=== PATIENT | male | born 1980 | race Caucasian/White ===

== ENCOUNTER 2021-04-10 13:29 | Emergency (ER) | payer OTHER ==
[~2021-04-10] VITALS: Ht 172.7 cm; Wt 108.9 kg
[2021-04-10 13:30] VITALS: BP_SYST 135
[2021-04-10] MEDS ORDERED: ALBU8.5H8 INH (15:31)
[2021-04-10] MEDS ORDERED: PRED20TA PO (15:31)
[2021-04-10] MEDS ORDERED: ZIT250 PO (15:31)
== END 2021-04-10 15:41 | disposition home or self-care (01) ==
LOC: SED 13:29
DX: U07.1 COVID-19 (principal)
CPT/HCPCS: 36415; 71045; 99284

== ENCOUNTER 2021-04-14 05:26 | Inpatient (IN) | payer OTHER, SELFPAY ==
[2021-04-14] VITALS (13 sets, daily range): BP systolic 130–190
[~2021-04-14] VITALS: Ht 172.7 cm; Wt 108.0 kg
[~2021-04-14 05:26] MED LIST: ALBU8.5H8 INH; PRED20TA PO; ZIT250 PO
--- NOTE | 2021-04-14 05:50 | NUR ---
Placed in room 8 . Placed on library monitor, blood pressure machine and pulse oximeter. To gown for exam. Side rails up. Report given to Angeline OLIVAS.
--- NOTE | 2021-04-14 05:54 | NUR ---
Oxygen sat 61 % RA- on canula 6 L/min - Oxygen sat 70 %- change to Mask 15 L/min- Oxygen 82-87 %
--- NOTE | 2021-04-14 06:00 | NUR ---
Patient BIB by family from home. C/o SOB x today. Patient reported, had fever and COVID-19 result positive on 04/10/21, started shortness of breath ~ 1900 PM last night. Hx HTN
--- NOTE | 2021-04-14 06:04 | NUR ---
COVID-19 (PCR and Rapid) swabs collected and sent to lab.
--- NOTE | 2021-04-14 06:05 | NUR ---
# 20 gauge angiocath placed to RAC. Use of asceptic technique. Opsite placed over site. Blood return noted. Blood for lab drawn from site. Flushed with 10 cc of normal saline. No evidence of infiltration noted. Patient tolerated well.
--- NOTE | 2021-04-14 06:10 | NUR ---
RT at bedside for ABG.
[2021-04-14] MEDS ORDERED: DEXAMETHASONE SOD PHOSPHATE 10 MG/ML VIAL IVP ONE ×2 (06:15→09:30)
--- NOTE | 2021-04-14 06:15 | NUR ---
CXR at bedside.
[2021-04-14 06:40] LABS: BASOPHILS % (AUTO) 0.1 % (0.0-2.0); HEMATOCRIT 42.3 % (36-54); HEMOGLOBIN 14.9 g/dL (14.0-18.0); LYMPHOCYTES # (AUTO) 0.8 K/uL (1.0-5.5); LYMPHOCYTES % (AUTO) 6.7 % (20.5-51.5); MEAN CORPUSCULAR HEMOGLOBIN 31 pg (27-31); MEAN CORPUSCULAR HGB CONC 35 % (32-36); MEAN CORPUSCULAR VOLUME 86 fL (79.0-98.0); MONOCYTES # (AUTO) 0.3 K/uL (0.0-1.0); MONOCYTES % (AUTO) 2.6 % (1.7-9.3); NEUTROPHILS # (AUTO) 10.2 K/uL (1.8-7.7); NEUTROPHILS % (AUTO) 90.6 % (40.0-70.0); PLATELET COUNT (AUTO) 179 K/uL (130-430); RED BLOOD CELL COUNT(AUTO) 4.91 MIL/uL (4.2-6.2); RED CELL DISTRIBUTION WIDTH 12.8 % (9.0-15.0); WHITE BLOOD COUNT (AUTO) 11.2 K/uL (4.8-10.8)
[2021-04-14 06:51] LABS: CALCIUM 7.9 mg/dL (8.4-11.0); CREATININE 0.85 mg/dL (0.55-1.30); POTASSIUM 3.5 mmol/L (3.5-5.1)
[2021-04-14 06:57] LABS: INR 0.9 (0.80-1.20); PROTHROMBIN TIME 9.9 SECS (9.5-12.5)
--- NOTE | 2021-04-14 06:57 | NUR ---
Medication reconciliation completed with information provided by patient. Any prior medication reconciliation on file was reviewed and corrected.
[2021-04-14 07:09] LABS: ALBUMIN 2.7 g/dL (3.4-4.8); TOTAL BILIRUBIN 0.7 mg/dL (0.0-1.0)
--- NOTE | 2021-04-14 07:14 | NUR ---
Report given to DEISY Smith and endorse care of patient.
[2021-04-14] MEDS ORDERED: cefTRIAXone 1 GM IVPB PREMIX 50 ML IV ONE (07:15)
--- NOTE | 2021-04-14 08:40 | NUR ---
Admit orders rec'd
[2021-04-14 08:41] LABS: CKMB RELATIVE INDEX 0.2 (0.0-2.9)
--- NOTE | 2021-04-14 09:15 | NUR ---
med rec and pt. belonging form complete
[2021-04-14] MEDS ORDERED: ALBUTEROL SULFATE 0.083% 2.5 MG/3 ML VIAL.NEB INH PRN (09:30)
[2021-04-14] MEDS ORDERED: IPRATROPIUM BROM 0.5 MG/2.5 ML VIAL.NEB (ATROVENT) INH PRN (09:30)
[2021-04-14] MEDS ORDERED: ENOXAPARIN SODIUM 40 MG/0.4 ML SYRINGE SUBCUT ONE (09:30)
--- NOTE | 2021-04-14 10:03 | NUR ---
[facility] [phone]
[2021-04-14] MEDS: IPRATROPIUM BROM 0.5 MG/2.5 ML VIAL.NEB (ATROVENT) INH SCH ×2 (11:00→15:00)
[2021-04-14] MEDS: ALBUTEROL SULFATE 0.083% 2.5 MG/3 ML VIAL.NEB INH SCH ×2 (11:00→15:00)
[2021-04-14 11:01] LABS: C-REACTIVE PROTEIN QUANT 16.4 mg/dL (0-0.5)
--- NOTE | 2021-04-14 12:00 | NUR ---
Second IV line started to left hand to infuse antibiotics
[2021-04-14] MEDS: AZITHROMYCIN 500 MG in NS 250 ML IV SCH (12:07)
[2021-04-14] MEDS ORDERED: ENOXAPARIN SODIUM 40 MG/0.4 ML SYRINGE ONE (12:10)
--- NOTE | 2021-04-14 13:30 | NUR ---
Patient will be admitted to care of Admitted to ICU unit. Will go to room 127B. Belongings list completed. Complete and up to date summary report printed. SBAR report to be given at bedside with opportunity for questions.
--- NOTE | 2021-04-14 13:35 | NUR ---
Admission to ICU Received report from pt. Pt AAOx4, SOB but able to verbalize needs with short sentences. Received with NRB mask then switched to high flow O2 40L FiO2 100%. IV sites intact, patent with zithromax infusing. Situated pt to room and call light. Provided with urinal. Educated pt on proning, breathing exercises, refraining from talking, and encouraged to text family members rather than call. Pt states understanding. No other complaints at this time.
--- NOTE | 2021-04-14 13:37 | NUR ---
CONSULT ID CONSULTING MD: DR. ARMSTRONG (DR. PINTO MANAGER VAN) PERSON NOTIFIED: DR. BLAIR SALDANA IN NURSING STATION ORDERED BY: DR. HENDERSON
--- NOTE | 2021-04-14 13:43 | NUR ---
CONSULT PULMO. CONSULTING MD: DR. DSOUZA PERSON NOTIFIED: RAJEEV DIALED: [phone] ORDERED BY: Azam HENDERSON
[2021-04-14] MEDS ORDERED: CHOLECALCIFEROL (VITAMIN D3) 5,000 UNIT TABLET PO ONE (14:00)
[2021-04-14] MEDS ORDERED: ASCORBIC ACID 500 MG TABLET PO ONE (14:00)
--- NOTE | 2021-04-14 14:30 | NUR ---
Family updates/Pt updates Pt's sister Yumiko given updates on pt's condition. Informed Yumiko and pt's family members to send text messages to help pt focus on breathing, Yumiko states understanding. Pt also noted proning on monitor, saturating 90-95%.
--- NOTE | 2021-04-14 17:14 | NUR ---
CONSULT CARDIO. CONSULTING MD: DR. NOEL PERSON NOTIFIED: VINAY DIALED: [phone] ORDERED BY: Azam MALDONADO
[2021-04-14] MEDS ORDERED: LORazepam 2 MG/ML VIAL IVP ONE (17:15)
--- NOTE | 2021-04-14 19:00 | NUR ---
Pt's sister Yumiko and Carrie given updates regarding pt's status. Questions answered.
--- NOTE | 2021-04-14 19:19 | NUR ---
Closing Note: Sister of pt updated. Dr. James assessed pt. Pt given prn ativan, no relief of anxiety. SBAR report given to oncoming airframe and power plant mechanic nurse. All cares endorsed.
--- NOTE | 2021-04-14 19:30 | NUR ---
Initial Note Received laying in bed awake, alert & oriented. On high flow O2 40L FiO2 100%. O2 sat 88-91%. Instructed on breathing technique and proning. Able to prone self. Saline lock to right ac intact & patent. Fall precautions in place. Call light within reach. Will continue to monitor.
[2021-04-14] MEDS: ASCORBIC ACID 500 MG TABLET PO SCH (21:00)
--- NOTE | 2021-04-14 21:30 | NUR ---
Sister Yumiko called for update on patient status. Update given.
[2021-04-15] VITALS (21 sets, daily range): BP systolic 114–160
--- NOTE | 2021-04-15 00:30 | NUR ---
Took to radiology for CTA chest via wheelchair. Tolerated procedure well and brought back to bed.
[2021-04-15] MEDS ORDERED: IOHEXOL 350 mgI/mL, 150 ML INFUS..BTL IV ONE (00:53)
--- NOTE | 2021-04-15 06:30 | NUR ---
Temp 99.9 F. Cooling measures administered.
--- NOTE | 2021-04-15 06:40 | NUR ---
Nutrition Update Zach Scale 18 noted. Pt admitted for COVID-19 Pneumonia, Respiratory Failure Diet: Regular BMI: 36.3 kg/m2 RD to follow per nutrition care standards.
--- NOTE | 2021-04-15 07:35 | NUR ---
INITIAL RECEIVED REPORTED FROM NIGHT RN VIA SBAR REPORT. PT VERBALIZED NO PAIN & DISCOMFORT. PT'S BASELINE HR >100 & B/L RR IS > 28
[2021-04-15] MEDS: ALBUTEROL MDI INHALATION 8 GM INH INH SCH ×4 (07:52→21:24)
[2021-04-15] MEDS: ENOXAPARIN SODIUM 40 MG/0.4 ML SYRINGE SUBCUT SCH (08:15)
[2021-04-15] MEDS: CHOLECALCIFEROL (VITAMIN D3) 5,000 UNIT TABLET PO SCH (08:16)
[2021-04-15] MEDS: ASCORBIC ACID 500 MG TABLET PO SCH ×2 (08:16→20:24)
[2021-04-15] MEDS: DEXAMETHASONE SOD PHOSPHATE 10 MG/ML VIAL IVP SCH (08:16)
[2021-04-15] MEDS: cefTRIAXone 1 GM IVPB PREMIX 50 ML IV SCH (08:17)
[2021-04-15] MEDS: AZITHROMYCIN 500 MG in NS 250 ML IV SCH (08:18)
[2021-04-15 09:18] LABS: C-REACTIVE PROTEIN QUANT 10.8 mg/dL (0-0.5)
--- NOTE | 2021-04-15 15:00 | NUR ---
PICC LINE UPDATED STILL AWAITING FOR PICC LINE NURSE TO COME. FOLLOW UP BY BED CONTROL IRA
--- NOTE | 2021-04-15 16:08 | NUR ---
Family called: Spoke with Yumiko,pt's sister,updates given. F/u call made to lab,pcr results still pending.
--- NOTE | 2021-04-15 18:20 | NUR ---
Id Called: Spoke with Dr. Crabtree and informed her patient's sister Yumiko wants patient to be given a convalescent plasma,per Dr Crabtree awaits PCR results ,can not give Plasma if results not in.She will let Dr Conner know in am regarding this matter and to call family for updates.
[2021-04-15] MEDS: LABETALOL 100 MG/ 20ML VIAL IVP PRN (18:45)
--- NOTE | 2021-04-15 18:50 | NUR ---
Labetalol iv: Labetalol 10mg iv given by Yamile for Sbp >160/108.no problem.
--- NOTE | 2021-04-15 19:15 | NUR ---
change of shift.pt.presents isolation status droplet;covid19+status.pt.presents o2 therapy via high flow;settings;rate:40l/min,fio2%=100%.o2-sat%=94%.no c/o pain,nausea.pt.utilizing urinal w/in access the pt.pt.to submit to placement picc line w/in the sustainability engineer.pt.capable to reposition self.call light w/in access of the pt.
--- NOTE | 2021-04-15 20:00 | NUR ---
pt.assessed.v/s assessed values wnl.no c/o pain,nausea.o2-sat%=96%.i have apprised the pt.that snacks/beverages are available w/in the shift.no requests posited@this hour.i have attended to the urinal cleaned placed w/in access of the pt.provided additional urinal.pt.capable to reposition self.call light w/in access of the pt.
--- NOTE | 2021-04-15 21:00 | NUR ---
picc line martin shukla has placed picc line location rt.bicept.cxr ordered confirmed placement.i have flushed the 2 lumens flushed w/out resistance.i have paged pt.had requested medication sleep. returned the page ordered ambien:5mg po x1.i have administered vit-c 2100pmedication.pt.capable to ingest po medication w/out difficulty.call light w/in access of the pt.
--- NOTE | 2021-04-15 21:00 | NUR ---
HIGH ALERT NOTE: Called Dr. brandon back at identified within the medical roster to verify physician authenticity.pt.had requested medication;sleep. ordered ambien:5mg po x1.
[2021-04-15] MEDS ORDERED: ZOLPIDEM TARTRATE 5 MG TABLET PO ONE (22:00)
--- NOTE | 2021-04-15 22:00 | NUR ---
pt.assessed.v/s assessed values wnl.02-sat%=94%.i have attended to the urinal:cleaned placed w/in access of the pt.no c/o pain,nausea.pt.had requested fresh water provided.pt.capable to reposition self.call light w/in access of the pt. Addendum: 04/16/21 at 0120 by Brandon Diaz RN i have administered ambien:5mg po;sleep.x1.per .
[2021-04-16] VITALS (24 sets, daily range): BP systolic 111–149
--- NOTE | 2021-04-16 | NUR ---
pt.assessed.v/s assessed values wnl.o2-sat%=91%.no c/o pain,nausea.i have attended to the urinal.placed w/in access of the pt.no requests posited@this hour.call light/w/in access of the pt.
--- NOTE | 2021-04-16 02:00 | NUR ---
pt.assessed.pt.presents quiescent affect;awake.no c/o pain,nausea.pt.had requested beverage.i have apprised juice;grape. i have attended to the urinal w/in access of the pt.pt.capable to reposition self.call light w/in access of the pt.
--- NOTE | 2021-04-16 04:00 | NUR ---
pt.assessed.v/s assessed values wnl.o2-sat%=93%.pt.presents quiescent affect awake.no c/o pain,nausea.no requests posited@this hour.urinal w/in access of the pt.pt.capable to reposition self.call light w/in access of the pt.
--- NOTE | 2021-04-16 06:00 | NUR ---
pt.assessed.v/s assessed values wnl.no c/o pain,nausea.o2-sat%=94%.pt.cleaned.pt.capable to reposition self.picc line intact. no requests posited@this hour.call light w/in access of the pt.
[2021-04-16 06:53] LABS: ALBUMIN 2.8 g/dL (3.4-4.8); CALCIUM 8.5 mg/dL (8.4-11.0); CREATININE 0.83 mg/dL (0.55-1.30); POTASSIUM 3.6 mmol/L (3.5-5.1); TOTAL BILIRUBIN 0.9 mg/dL (0.0-1.0)
[2021-04-16 07:01] LABS: BASOPHILS % (AUTO) 0.1 % (0.0-2.0); EOSINOPHILS % (AUTO) 0.1 % (0.0-4.0); HEMATOCRIT 43.9 % (36-54); HEMOGLOBIN 15.5 g/dL (14.0-18.0); LYMPHOCYTES # (AUTO) 0.8 K/uL (1.0-5.5); LYMPHOCYTES % (AUTO) 6.7 % (20.5-51.5); MEAN CORPUSCULAR HEMOGLOBIN 31 pg (27-31); MEAN CORPUSCULAR HGB CONC 35 % (32-36); MEAN CORPUSCULAR VOLUME 89 fL (79.0-98.0); MONOCYTES # (AUTO) 0.6 K/uL (0.0-1.0); MONOCYTES % (AUTO) 4.7 % (1.7-9.3); NEUTROPHILS # (AUTO) 10.9 K/uL (1.8-7.7); NEUTROPHILS % (AUTO) 88.4 % (40.0-70.0); PLATELET COUNT (AUTO) 164 K/uL (130-430); RED BLOOD CELL COUNT(AUTO) 4.94 MIL/uL (4.2-6.2); RED CELL DISTRIBUTION WIDTH 12.5 % (9.0-15.0); WHITE BLOOD COUNT (AUTO) 12.3 K/uL (4.8-10.8)
--- NOTE | 2021-04-16 07:15 | NUR ---
breakfast tray given to patient
--- NOTE | 2021-04-16 07:35 | NUR ---
OPENING NOTE RECEIVED REPORT FROM NIGHT RN. PATIENT RESTING COMFORTABLY & DENIED PAIN. NO S&S OF DISTRESS NOTED. CALL LIGHT WITHIN REACH, BED LOCKED & IS IN THE LOWEST POSITION, FALL PRECAUTION IN PLACED
[2021-04-16] MEDS: cefTRIAXone 1 GM IVPB PREMIX 50 ML IV SCH (08:12)
[2021-04-16] MEDS: ALBUTEROL MDI INHALATION 8 GM INH INH SCH ×4 (08:27→21:10)
[2021-04-16] MEDS: CHOLECALCIFEROL (VITAMIN D3) 5,000 UNIT TABLET PO SCH (08:30)
[2021-04-16] MEDS: ASCORBIC ACID 500 MG TABLET PO SCH ×2 (08:31→21:37)
[2021-04-16] MEDS: ENOXAPARIN SODIUM 40 MG/0.4 ML SYRINGE SUBCUT SCH (08:32)
[2021-04-16] MEDS: AZITHROMYCIN 500 MG in NS 250 ML IV SCH (08:33)
[2021-04-16] MEDS: DEXAMETHASONE SOD PHOSPHATE 10 MG/ML VIAL IVP SCH (08:36)
[2021-04-16] MEDS: ACETAMINOPHEN 500 MG TABLET PO PRN ×2 (09:00→21:39)
--- NOTE | 2021-04-16 12:30 | NUR ---
lunch tray given to patient
--- NOTE | 2021-04-16 14:35 | NUR ---
provided partial bed bath, do oral care and bedside care rendered
--- NOTE | 2021-04-16 21:30 | NUR ---
PATIENT WAS ACCEPTED AND ASSESS DONE , PATIENT SITTING INAN 45 DEGREE ANGLE , NOTICE PATIENT HEART RATE WAS 120-124 ALSO THE RESP' RATE 30-44 ASK IF THE PATIENT WAS SOB MARY LOU NO , APPEAR TO BE SOB , NOTICE PATIENT HAD TWO MIRZA FOR WATER HAS DRINK ALL THE WATER AND ASKING FOR MORE PATIENT HAS AN CAD PROBLEM MAY WANT TO SLOW DOWN DRINKING WATER , IS OBESITY WITH EDEMA ALL OVER , ABDOMEN , IS DISTENDED WILL MONITOR CLOSELY, STABLE
--- NOTE | 2021-04-16 22:00 | NUR ---
PATIENT SISTER HAD BOUGHT PACKAGE FOR THE PATIENT WAS SOME FOOD AND DEVICE FOR AN CELL PHONE PATIENT WILL DESAT T088% WHEN MASK IS REMOVED AND THE PATIENT WELL REMOVE THE MASK OFFERED , HAS HIFLOW OXYGEN AND NRB INPLACE RESTLESS AT TIME TEMP 99.1 WANT AN SLEEPER AT 2030 , THIS OS TOO EARLY FOR SLEEPING MEDICATION WAS TOLD TO THE PATIENT PATIENT DID NOT TAKE THE FOODS ONLY DEVICE FOR THE CELL PHONE CALL THE SISTER KARL TO EXPLAIN PATIENT UNABLE TO CONSUMED THE FOOD DUE TO HIS CONDITION , STABLE WILL CONTINUED WITH PLAN OF CARE edema,lower extremities.
[2021-04-17] VITALS (25 sets, daily range): BP systolic 113–166
--- NOTE | 2021-04-17 05:00 | NUR ---
PATIENT RESTLESS AND ANXIETY HAS DESAT 88-89 DURING THE NITE WITH INCREASR RESP. RATE ALSO HEART RATE 124-130, MARY LOU PAIN , STAT WANT TO SEE THE DOCTOR TO HELPHIM BREATH ABDULAZIZ ASK ABOUT THE PLASMA BLOOD TO GET EXPLAIN OF THE MEDICATION IV TO BE GIVEN DAILY, REMDESIVER GIVEN AT 1700 DAILY PATIENT IS SHOWING FEAR OF GEETTING WELL MAY NEED TO PLACE ON BIPAP TRAIL TO HELP BREATHING AND HEART RATE , WILL NEED SME MEDICATION ELEVATED TEMP AND SWEATING WILL GIVE MEDICATION , STABLE WILL CATIE WITH PLAN OF CARE
[2021-04-17 06:53] LABS: ALBUMIN 2.7 g/dL (3.4-4.8); CALCIUM 8.3 mg/dL (8.4-11.0); CREATININE 0.86 mg/dL (0.55-1.30); POTASSIUM 3.5 mmol/L (3.5-5.1)
[2021-04-17] MEDS: ALBUTEROL MDI INHALATION 8 GM INH INH SCH ×2 (07:40→19:36)
--- NOTE | 2021-04-17 07:40 | NUR ---
RT NOTES 0515 RE-EDUC PT TO TRY PRONE HIMSELF, PT COMPLAIN ITS HARD WITH NRB ON HIS FACE. PT SEEMED TO BE NONCOOPERATIVE.
[2021-04-17] MEDS: CHOLECALCIFEROL (VITAMIN D3) 5,000 UNIT TABLET PO SCH (08:16)
[2021-04-17] MEDS: DEXAMETHASONE SOD PHOSPHATE 10 MG/ML VIAL IVP SCH (08:16)
[2021-04-17] MEDS: ASCORBIC ACID 500 MG TABLET PO SCH ×2 (08:16→21:10)
[2021-04-17] MEDS: ENOXAPARIN SODIUM 40 MG/0.4 ML SYRINGE SUBCUT SCH (08:17)
[2021-04-17] MEDS: cefTRIAXone 1 GM IVPB PREMIX 50 ML IV SCH (08:18)
[2021-04-17] MEDS: AZITHROMYCIN 500 MG in NS 250 ML IV SCH (09:13)
--- NOTE | 2021-04-17 10:07 | NUR ---
. PAGED DR DSOUZA AND SPOKE TO HIM THAT PT'S DESATURATING WHEN HE TOOK OFF THE NON REBREATHER MASK, SAT 72%, O2 HIGH FLOW IN USE. PT EXPRESSED DIFFICULTY IN BREATHING, R.T AT BEDSIDE TO ASSESS AND GIVE BREATHING TREATMENT.
--- NOTE | 2021-04-17 11:30 | NUR ---
PRONING PT ALERT, SKIN MOIST, STATED "I'M SWEATY", SHORT OF BREATH, O2 HIGH FLOW AND NON REBREATHER MASK, WIPES AND CLEAN SHEETS PROVIDED, HELPED PT WITH HYGIENE. HE ASKED HELP IN PRONING HIM. PILLOW PLACED TO POSITION PT ON HIS STOMACH. SATURATION 88%.
--- NOTE | 2021-04-17 14:32 | NUR ---
RT NOTES 4077 RE-EDUC PT TO KEEP ON PRONING MUCH HE CAN. BUT PT KEEPS ON WHINING, HE CANT TAKE IT ANYMORE. AND THAT NRB MASK BOTHERS HIM.
--- NOTE | 2021-04-17 14:52 | NUR ---
IT ANALYST CALLED DR NOEL AND SPOKE TO HIM REGARDING ABG AND CHEST XRAY RESULTS. NO NEW ORDERS RECEIVED.
--- NOTE | 2021-04-17 15:56 | NUR ---
ACTIVITY PT FACING THE BACK OF HIS BED, ON HIS KNEES, LOOKING AT THE EKG AND O2 SATURATION. HE EXPRESSED THAT HE WANTED TO LIE DOWN AND HELPED HIM. NEEDS ASSESSED AND ATTENDED, WATER, SHEETS CHANGED.
--- NOTE | 2021-04-17 17:55 | NUR ---
RN GYN DR DSOUZA EXAMINING PT AT BEDSIDE.
--- NOTE | 2021-04-17 19:40 | NUR ---
Received report and assumed care. Using accessory muscles; tachypneic and tachycardic with RR 40 and HR 140. O2 sats 88. On high flow 40L 100% plus NRM 100%. will continue to monitor.
--- NOTE | 2021-04-17 20:15 | NUR ---
Placed on bipap for trial 16/8 BR 18 100%.
--- NOTE | 2021-04-17 20:50 | NUR ---
Not tolerating bipap. Reports "I just don't like it; I can't turn myself on my belly". Reported to RT and placed again on high flow 40L 100% and NRM.
--- NOTE | 2021-04-17 21:50 | NUR ---
Spoke with patient's sister Yumiko. Information provided satisfactorily.
--- NOTE | 2021-04-17 22:05 | NUR ---
Self proning. Patient requires supervision during proning but overall able to do it on his own. tolerating well.
[2021-04-18] VITALS (23 sets, daily range): BP systolic 109–162
[2021-04-18 06:45] LABS: ALBUMIN 2.7 g/dL (3.4-4.8); CALCIUM 8.3 mg/dL (8.4-11.0); POTASSIUM 3.7 mmol/L (3.5-5.1); TOTAL BILIRUBIN 1.4 mg/dL (0.0-1.0)
[2021-04-18] MEDS: ALBUTEROL MDI INHALATION 8 GM INH INH SCH ×4 (07:00→20:01)
[2021-04-18] MEDS: ASCORBIC ACID 500 MG TABLET PO SCH ×2 (07:47→21:50)
[2021-04-18] MEDS: CHOLECALCIFEROL (VITAMIN D3) 5,000 UNIT TABLET PO SCH (07:47)
[2021-04-18] MEDS: ENOXAPARIN SODIUM 40 MG/0.4 ML SYRINGE SUBCUT SCH (07:48)
[2021-04-18] MEDS: DEXAMETHASONE SOD PHOSPHATE 10 MG/ML VIAL IVP SCH (07:48)
--- NOTE | 2021-04-18 08:00 | NUR ---
PT ALERT ON O2 VIA NON REBREATHER MASK 15 L WITH HI FLOW 40L @ 100%. HELPED PT SIT UPRIGHT IN BED FOR BREAKFAST INSTRUCTED TO STAY PRONE OR AT LEAST SIDE-LYING. CALL LIGHT IN PLACE, BED LOCKED AT THE LOWEST POSITION, WILL CONTINUE TO MONITOR.
[2021-04-18] MEDS: AZITHROMYCIN 500 MG in NS 250 ML IV SCH (08:24)
[2021-04-18] MEDS: cefTRIAXone 1 GM IVPB PREMIX 50 ML IV SCH (09:44)
--- NOTE | 2021-04-18 10:00 | NUR ---
PATIENT IS SEEN BY DR. MORE. ORDERS ARE GIVEN.
--- NOTE | 2021-04-18 12:34 | NUR ---
PATIENT IS EATING LUNCH; DR. DSOUZA IS AT BEDSIDE ROUNDING.
--- NOTE | 2021-04-18 15:00 | NUR ---
PATIENT IS FIDGETING AND OCCASIONALLY REMOVING HIS OXYGEN. HE IS REMINDED BY RN THAT HE IS SUPPOSED TO KEEP HIS O2 ON TO PREVENT DESAT AND CLINICAL DETERIORATION.
--- NOTE | 2021-04-18 19:20 | NUR ---
Opening note Patient awake on supine position. Advised to continue to self prone to improve O2 saturations; patient on high flow and NRM with saturations 85-88 % and reaching 90% while proning. Restless and anxious; will contact MD for orders to manage restlessness and anxiety. will continue to monitor.
--- NOTE | 2021-04-18 20:06 | NUR ---
Paged Dr. Tamez at extension, carton catcher.
--- NOTE | 2021-04-18 20:11 | NUR ---
Spoke to Dr. Hernandez in regards to pt being anxious and restless, orders were received.
[2021-04-18] MEDS: traZODone HCL 50 MG TABLET (DESYREL) PO SCH (21:50)
[2021-04-19] VITALS (15 sets, daily range): BP systolic 120–175
--- NOTE | 2021-04-19 00:10 | NUR ---
Assessment completed; assisted patient to prone position. tolerated well. will continue to monitor.
[2021-04-19 09:10] LABS: BASOPHILS % (AUTO) 0.2 % (0.0-2.0); HEMATOCRIT 41.1 % (36-54); HEMOGLOBIN 15.4 g/dL (14.0-18.0); LYMPHOCYTES # (AUTO) 0.8 K/uL (1.0-5.5); LYMPHOCYTES % (AUTO) 3.6 % (20.5-51.5); MEAN CORPUSCULAR HEMOGLOBIN 35 pg (27-31); MEAN CORPUSCULAR HGB CONC 38 % (32-36); MEAN CORPUSCULAR VOLUME 94 fL (79.0-98.0); MONOCYTES # (AUTO) 0.3 K/uL (0.0-1.0); MONOCYTES % (AUTO) 1.5 % (1.7-9.3); NEUTROPHILS # (AUTO) 21.5 K/uL (1.8-7.7); NEUTROPHILS % (AUTO) 94.7 % (40.0-70.0); RED CELL DISTRIBUTION WIDTH 12.7 % (9.0-15.0); WHITE BLOOD COUNT (AUTO) 22.7 K/uL (4.8-10.8)
[2021-04-19 10:07] LABS: ALBUMIN 2.6 g/dL (3.4-4.8); CALCIUM 8.6 mg/dL (8.4-11.0); CREATININE 1.01 mg/dL (0.55-1.30); POTASSIUM 4.1 mmol/L (3.5-5.1); TOTAL BILIRUBIN 1.1 mg/dL (0.0-1.0)
[2021-04-19] MEDS: cefTRIAXone 1 GM IVPB PREMIX 50 ML IV SCH (10:34)
[2021-04-19] MEDS: DEXAMETHASONE SOD PHOSPHATE 10 MG/ML VIAL IVP SCH (10:35)
[2021-04-19] MEDS: ASCORBIC ACID 500 MG TABLET PO SCH ×2 (10:36→21:00)
[2021-04-19] MEDS: CHOLECALCIFEROL (VITAMIN D3) 5,000 UNIT TABLET PO SCH (10:36)
[2021-04-19] MEDS: ENOXAPARIN SODIUM 40 MG/0.4 ML SYRINGE SUBCUT SCH (10:38)
[2021-04-19 11:28] LABS: C-REACTIVE PROTEIN QUANT 23.1 mg/dL (0-0.5)
[2021-04-19 11:46] LABS: PLATELET COUNT (AUTO) 78 K/uL (130-430)
--- NOTE | 2021-04-19 12:14 | NUR ---
PAGED PAGED AT [phone] SPOKE WITH KIRK.
[2021-04-19 14:22] LABS: ERYTHROCYTE SEDIMENTATION RATE 29 MM/HR (0-15)
[2021-04-19] MEDS ORDERED: PROPOFOL DRIP 100 ML IV ONE ×3 (15:51→20:05)
--- NOTE | 2021-04-19 16:22 | NUR ---
1530 assited intubating pt. ett7.5@26cm ll. co2 color change. x ray called to confirm tube position. will cont to monitor. Addendum: 04/19/21 at 1625 by Concha Menjivar RT Amended: Links added.
[2021-04-19] MEDS ORDERED: ENOXAPARIN SODIUM 40 MG/0.4 ML SYRINGE SUBCUT ONE (16:30)
[2021-04-19] MEDS ORDERED: VECURONIUM BROMIDE 50 MG in NS 50 ML IV PRN (16:30)
[2021-04-19] MEDS ORDERED: MORPHINE SULFATE IN 0.9 % NACL 100 ML IV PRN (17:45)
[2021-04-19] MEDS ORDERED: MIDAZOLAM HCL IN 0.9 % NACL/PF 50 ML IV PRN ×2 (17:45→20:45)
[2021-04-19] MEDS ORDERED: NALOXONE HCL 0.4 MG/ML AMP (NARCAN) IVP PRN (17:45)
--- NOTE | 2021-04-19 17:58 | NUR ---
Dietitian Recommendations * Consider NGT/OGT placement and initiation of Vital AF TF formula if/when pt is intubated LP, RD Please refer to Nutrition Assessment for details. Addendum: 04/19/21 at [address] Amended: Links added.
--- NOTE | 2021-04-19 19:30 | NUR ---
Opening note Received report and assumed care. Patient intubated noted to be restless and requiring more sedation. Orders received to start versed drip from Dr Hernandez. will continue to monitor
[2021-04-19] MEDS ORDERED: MORPHINE SULFATE IN 0.9 % NACL 100 ML IV ONE (19:44)
--- NOTE | 2021-04-19 20:15 | NUR ---
PAGED DR. DSOUZA/DR. DIAZ CORK WIRER [phone] SPOKE WITH YENI
[2021-04-19] MEDS: traZODone HCL 50 MG TABLET (DESYREL) PO SCH (21:00)
[2021-04-19] MEDS ORDERED: MIDAZOLAM IN NACL,ISO-OSMOT/PF 100 ML IV ONE (21:21)
[2021-04-19] MEDS: ALBUTEROL MDI INHALATION 8 GM INH INH SCH (21:44)
[2021-04-20] VITALS (29 sets, daily range): BP systolic 108–165
--- NOTE | 2021-04-20 01:00 | NUR ---
Placed in prone position. Suggested reposition to supine 1700
[2021-04-20 06:50] LABS: BASOPHILS % (AUTO) 0.2 % (0.0-2.0); HEMATOCRIT 39.3 % (36-54); HEMOGLOBIN 14.3 g/dL (14.0-18.0); LYMPHOCYTES # (AUTO) 0.4 K/uL (1.0-5.5); MEAN CORPUSCULAR HEMOGLOBIN 35 pg (27-31); MEAN CORPUSCULAR HGB CONC 36 % (32-36); MEAN CORPUSCULAR VOLUME 95 fL (79.0-98.0); MONOCYTES # (AUTO) 0.3 K/uL (0.0-1.0); MONOCYTES % (AUTO) 1.6 % (1.7-9.3); NEUTROPHILS # (AUTO) 19.8 K/uL (1.8-7.7); NEUTROPHILS % (AUTO) 96.2 % (40.0-70.0); PLATELET COUNT (AUTO) 71 K/uL (130-430); RED BLOOD CELL COUNT(AUTO) 4.12 MIL/uL (4.2-6.2); RED CELL DISTRIBUTION WIDTH 12.9 % (9.0-15.0); WHITE BLOOD COUNT (AUTO) 20.6 K/uL (4.8-10.8)
[2021-04-20 06:56] LABS: ALBUMIN 2.3 g/dL (3.4-4.8); CREATININE 1.01 mg/dL (0.55-1.30); POTASSIUM 4.9 mmol/L (3.5-5.1); TOTAL BILIRUBIN 0.5 mg/dL (0.0-1.0)
[2021-04-20] MEDS ORDERED: fentaNYL CITRATE/PF 100 MCG/2 ML AMP ONE (08:39)
[2021-04-20] MEDS ORDERED: ENOXAPARIN SODIUM 40 MG/0.4 ML SYRINGE SUBCUT SCH (09:00)
[2021-04-20] MEDS: ENOXAPARIN SODIUM 40 MG/0.4 ML SYRINGE SUBCUT SCH (09:00)
[2021-04-20] MEDS: MORPHINE SULFATE IN 0.9 % NACL 100 ML IV PRN (09:03)
[2021-04-20] MEDS ORDERED: PANTOPRAZOLE SODIUM 40 MG/VIAL (PROTONIX) IVP ONE (09:30)
[2021-04-20] MEDS ORDERED: DEXAMETHASONE SOD PHOSPHATE 10 MG/ML VIAL IVP ONE (09:30)
[2021-04-20] MEDS ORDERED: COMMUNICATION ORDER XX ONE (09:30)
[2021-04-20] MEDS ORDERED: PROPOFOL DRIP 100 ML IV ONE (09:36)
[2021-04-20 10:15] LABS: ERYTHROCYTE SEDIMENTATION RATE 31 MM/HR (0-15)
[2021-04-20] MEDS: CHOLECALCIFEROL (VITAMIN D3) 5,000 UNIT TABLET PO SCH (10:34)
[2021-04-20] MEDS: cefTRIAXone 1 GM IVPB PREMIX 50 ML IV SCH (10:35)
[2021-04-20] MEDS: ASCORBIC ACID 500 MG TABLET PO SCH ×2 (10:35→20:25)
[2021-04-20] MEDS: NACL 0.9% 1,000 ML IV SCH ×2 (10:35→20:25)
[2021-04-20] MEDS: VECURONIUM BROMIDE 50 MG in NS 50 ML IV PRN (10:44)
--- NOTE | 2021-04-20 11:47 | NUR ---
Vecuronium rate sheet Spoke with dex Caba for dosing of vecuronium. 0.1mcg/kg/min = 0.6cc on the pump.
[2021-04-20] MEDS ORDERED: TOCILIZUMAB 162 MG/0.9 ML SYRINGE SUBCUT ONE (12:15)
[2021-04-20 13:59] LABS: C-REACTIVE PROTEIN QUANT 23.7 mg/dL (0-0.5)
[2021-04-20] MEDS: BARICITINIB -Non-Formulary 2 MG TABLET PO SCH (14:07)
--- NOTE | 2021-04-20 15:00 | NUR ---
SUPINE: PT SUPINED AT 1500, PT TOLERATED WELL, NAD, WILL CONTINUE TO MONITOR.
--- NOTE | 2021-04-20 19:31 | NUR ---
Received SBAR report from off coming RN for continuity of care. Pt laying in bed in supine position. Pt intubated and on ventilator, oxygen saturation maintained above 90%. HR 130's-140's (ST). Diprivan gtt infusing @ 40 mcg/kg/min, Versed gtt @ 7 mg/hr, Morphine gtt @ 5 mg/hr, Vecuronium gtt @ 5.2 mg/hr. Hui catheter in place and draining to gravity. Bed locked in lowest position, safety precautions in place.
[2021-04-20] MEDS: ALBUTEROL MDI INHALATION 8 GM INH INH SCH (19:58)
[2021-04-20] MEDS: DEXAMETHASONE SOD PHOSPHATE 10 MG/ML VIAL IVP SCH (20:22)
[2021-04-20] MEDS: APIXABAN 2.5 MG TABLET NG SCH (20:23)
[2021-04-20] MEDS: traZODone HCL 50 MG TABLET (DESYREL) PO SCH (20:24)
[2021-04-20] MEDS: PROPOFOL DRIP 100 ML IV PRN (20:30)
[2021-04-20] MEDS: ACETAMINOPHEN 500 MG TABLET PO PRN (21:06)
--- NOTE | 2021-04-20 21:30 | NUR ---
Pt laying in bed, intubated and on ventilator. Oxygen saturations maintained above 90%. Provided PO care and suctioning, pt tolerated well. HR in 130's-140's (ST). Pt febrile with a temperature of 103, administered PRN Tylenol and providing cooling measures. NG-tube in place, placement confirmed with air bolus. Morphine gtt infusing @ 7 mg/hr, Versed gtt @ 7 mg/hr, Diprivan gtt @ 40 mcg/kg/min, Vecuronium gtt @ 5.2 mg/hr. Hui catheter in place and draining to gravity. Turned and repositioned, pt tolerated well. Bed locked and in lowest position, safety precautions in place.
--- NOTE | 2021-04-20 23:00 | NUR ---
Sister Yumiko called for updates, updates provided, all questions answered.
--- NOTE | 2021-04-20 23:30 | NUR ---
Pt placed in PRONE position. Pt tolerated well.
[2021-04-21] VITALS (34 sets, daily range): BP systolic 104–149
[2021-04-21] MEDS: MIDAZOLAM IN NACL,ISO-OSMOT/PF 100 ML IV PRN ×2 (03:05→16:14)
[2021-04-21] MEDS: PROPOFOL DRIP 100 ML IV PRN ×4 (03:05→16:17)
--- NOTE | 2021-04-21 06:01 | NUR ---
Sister Yumiko called for updates, updates provided, all questions answered.
[2021-04-21] MEDS: MORPHINE SULFATE IN 0.9 % NACL 100 ML IV PRN ×2 (07:00→18:53)
--- NOTE | 2021-04-21 07:13 | NUR ---
Endorsed SBAR report to oncoming RN for continuity of care. Pt remains proned, oxygen saturations maintained above 95%. FiO2 was decreased to 70% during the shift, tolerating well. Diprivan gtt infusing @ 40 mcg/kg/min, Versed gtt @ 7 mg/hr, Morphine @ 7 mg/hr, and Vecuronium gtt @ 5.2 mg/hr.
[2021-04-21 07:50] LABS: BASOPHILS % (AUTO) 0.2 % (0.0-2.0); HEMATOCRIT 39.6 % (36-54); HEMOGLOBIN 13.8 g/dL (14.0-18.0); LYMPHOCYTES # (AUTO) 0.5 K/uL (1.0-5.5); LYMPHOCYTES % (AUTO) 2.9 % (20.5-51.5); MEAN CORPUSCULAR HEMOGLOBIN 35 pg (27-31); MEAN CORPUSCULAR HGB CONC 35 % (32-36); MEAN CORPUSCULAR VOLUME 99 fL (79.0-98.0); MONOCYTES # (AUTO) 0.5 K/uL (0.0-1.0); MONOCYTES % (AUTO) 2.8 % (1.7-9.3); NEUTROPHILS # (AUTO) 17.1 K/uL (1.8-7.7); NEUTROPHILS % (AUTO) 94.1 % (40.0-70.0); PLATELET COUNT (AUTO) 87 K/uL (130-430); RED CELL DISTRIBUTION WIDTH 12.6 % (9.0-15.0); WHITE BLOOD COUNT (AUTO) 18.2 K/uL (4.8-10.8)
--- NOTE | 2021-04-21 08:50 | NUR ---
Called HCP FELICIA Beauchamp at [phone] and left message regarding follow up on transfer. Dr. Cruz here rounding on pts and inquired.
[2021-04-21] MEDS: APIXABAN 2.5 MG TABLET NG SCH ×2 (09:00→21:26)
[2021-04-21] MEDS: PANTOPRAZOLE SODIUM 40 MG/VIAL (PROTONIX) IVP SCH (09:35)
[2021-04-21] MEDS: cefTRIAXone 1 GM IVPB PREMIX 50 ML IV SCH (09:36)
[2021-04-21] MEDS: DEXAMETHASONE SOD PHOSPHATE 10 MG/ML VIAL IVP SCH ×2 (09:36→21:18)
[2021-04-21] MEDS: ASCORBIC ACID 500 MG TABLET PO SCH ×2 (09:37→21:27)
[2021-04-21 10:15] LABS: POTASSIUM 5.4 mmol/L (3.5-5.1)
[2021-04-21 10:16] LABS: ALBUMIN 2.2 g/dL (3.4-4.8); CREATININE 0.99 mg/dL (0.55-1.30); TOTAL BILIRUBIN 0.6 mg/dL (0.0-1.0)
--- NOTE | 2021-04-21 10:18 | NUR ---
Called HCP CM to follow up on transfer to higher level of care. Voice mailbox is full. Call out to Dr. Soares.
[2021-04-21] MEDS: ALBUTEROL MDI INHALATION 8 GM INH INH SCH ×4 (10:57→19:37)
--- NOTE | 2021-04-21 11:00 | NUR ---
PEEP RATE CHANGED PER MD GARCIA TO DECREASED PEEP RATE TO 17, THUS NOTIFIED RT
[2021-04-21] MEDS: CHOLECALCIFEROL (VITAMIN D3) 5,000 UNIT TABLET PO SCH (11:33)
[2021-04-21] MEDS: BARICITINIB -Non-Formulary 2 MG TABLET PO SCH (11:34)
[2021-04-21] MEDS: VECURONIUM BROMIDE 50 MG in NS 50 ML IV PRN (12:25)
[2021-04-21] MEDS: NACL 0.9% 1,000 ML IV SCH (13:17)
--- NOTE | 2021-04-21 15:30 | NUR ---
UPDATED PLACED PT IN SUPINE POSITION; PT TOLERATED WELL
[2021-04-21] MEDS ORDERED: VECURONIUM BROMIDE 10 MG/VIAL (NORCURON) ONE (21:19)
[2021-04-21] MEDS: traZODone HCL 50 MG TABLET (DESYREL) PO SCH (21:27)
[2021-04-22] VITALS (30 sets, daily range): BP systolic 105–167
[2021-04-22] MEDS: NACL 0.9% 1,000 ML IV SCH ×2 (00:41→12:13)
[2021-04-22] MEDS ORDERED: PROPOFOL DRIP 100 ML IV ONE (02:56)
--- NOTE | 2021-04-22 07:23 | NUR ---
INITIAL RECEIVED REPORT FROM NIGHT NURSE RN. PT RESTING COMFORTABLY, NO S&S OF DISTRESS NOTED. BED LOCKED & IN LOWEST POSITION
--- NOTE | 2021-04-22 08:00 | NUR ---
TOF: 4/4, vecuronium 0.89 mcg/kg/min
[2021-04-22 08:30] LABS: BASOPHILS % (AUTO) 0.3 % (0.0-2.0); HEMATOCRIT 40.6 % (36-54); HEMOGLOBIN 13.6 g/dL (14.0-18.0); LYMPHOCYTES # (AUTO) 0.6 K/uL (1.0-5.5); LYMPHOCYTES % (AUTO) 3.9 % (20.5-51.5); MEAN CORPUSCULAR HEMOGLOBIN 31 pg (27-31); MEAN CORPUSCULAR HGB CONC 34 % (32-36); MEAN CORPUSCULAR VOLUME 91 fL (79.0-98.0); MONOCYTES # (AUTO) 0.9 K/uL (0.0-1.0); MONOCYTES % (AUTO) 5.8 % (1.7-9.3); NEUTROPHILS # (AUTO) 13.7 K/uL (1.8-7.7); PLATELET COUNT (AUTO) 94 K/uL (130-430); RED BLOOD CELL COUNT(AUTO) 4.46 MIL/uL (4.2-6.2); RED CELL DISTRIBUTION WIDTH 12.3 % (9.0-15.0); WHITE BLOOD COUNT (AUTO) 15.2 K/uL (4.8-10.8)
[2021-04-22 08:46] LABS: CALCIUM 7.9 mg/dL (8.4-11.0); CREATININE 0.75 mg/dL (0.55-1.30); POTASSIUM 4.8 mmol/L (3.5-5.1); TOTAL BILIRUBIN 0.5 mg/dL (0.0-1.0)
[2021-04-22] MEDS: APIXABAN 2.5 MG TABLET NG SCH ×2 (09:00→20:07)
[2021-04-22] MEDS: PROPOFOL DRIP 100 ML IV PRN ×4 (09:05→23:03)
[2021-04-22] MEDS: PANTOPRAZOLE SODIUM 40 MG/VIAL (PROTONIX) IVP SCH (09:10)
[2021-04-22] MEDS: cefTRIAXone 1 GM IVPB PREMIX 50 ML IV SCH (09:10)
[2021-04-22] MEDS: BARICITINIB -Non-Formulary 2 MG TABLET PO SCH (09:10)
[2021-04-22] MEDS: ASCORBIC ACID 500 MG TABLET PO SCH ×2 (09:11→20:08)
[2021-04-22] MEDS: DEXAMETHASONE SOD PHOSPHATE 10 MG/ML VIAL IVP SCH ×2 (09:11→20:06)
--- NOTE | 2021-04-22 11:00 | NUR ---
Vent setting change to FiO2 55% by RT per MD order, tolerating well, saturating 98%.
--- NOTE | 2021-04-22 12:00 | NUR ---
TOF: 4/4, vecuronium 0.89 mcg/kg/min
[2021-04-22] MEDS: CHOLECALCIFEROL (VITAMIN D3) 5,000 UNIT TABLET PO SCH (12:07)
[2021-04-22] MEDS: VECURONIUM BROMIDE 50 MG in NS 50 ML IV PRN ×2 (12:09→22:02)
[2021-04-22] MEDS: MORPHINE SULFATE IN 0.9 % NACL 100 ML IV PRN (12:12)
--- NOTE | 2021-04-22 15:01 | NUR ---
Nutrition F/U Admitting Diagnosis: COVID, pneumonia, respiratory failure Medical History Comment: PMH: HTN per physician notes Pt also found w/ sepsis per physician notes SARS-CoV-2 Ag (Rapid) Negative 04/14 & (PCR) Positive 04/14 Subjective Information: Pt was seen in ICU, through glass door/window. Per H&P, pt continues w/ poor oxygenation, desaturates after intubation. Pt is currently being evaluated for possible transfer to higher level of care for possible V-V ECMO. noted, pt continues to prone and isolation precaution remains and RD bedside visit has been deferred. RD s/w pt's primary RN who reported that pt is currently in prone position during RD rounds, RN reports pt is being proned 16 hrs and in supine position for 8 hrs a day. EN infusing at 10ml/hr when proned. No other EN issues overnight. Per EMR review, abdomen is distended w/ hypoactive bowel sounds, last BM 04/19 x1. Zach scale: 12, per RN notes, skin tear to left cheek, non-pitting bilateral generalized edema. EN rate: 10ml (04/21), GRV: 0ml (04/22). Current EN infusing provides: 288 kcal, 14gm protein and 193ml fluids from EN alone which meets <50% of estimated calorie and protein needs. An increase in EN infusion rate is warranted to meet estimated nutrient needs once pt is clinically stable. Current Diet Order/Nutrition Support: Glucerna 1.2 at 60ml/hr, FWF 100ml Q6H via OGT x 2 days Pertinent Medications remdesivir, VIT D3, eliquis, decadron, VIT C, Protonix, Propofol at 25.909ml/hr (684kcal/day) Pertinent Labs 04/22 WBC 15.2H, BG 176H, POC BG 169H, BUN 32H, Cre 0.75 Height (Feet) 5 feet Height (Inches) 8.00 inches Weight (Pounds) 238 pounds (04/19) --stable Weight (Calculated Kilograms) 107.376479 kilograms Patient Weight 107.955 kg Body Mass Index 36.18 kg/m2 [place]/Adjusted Body Weight IBW: 154#/70 kg. Adj IBW (obesity): 175#/80 kg NEW Estimated Energy Expenditure (kcals/day) 2243 kcal/day (PSU 2003b for vent support) Estimated Protein Required (g/day) 120-160 gm/day (1.5-2 gm/kg Adj IBW d/t sepsis) Estimated Fluid Required (l/day) 2.4-2.8 L/day (1 ml/kcal/day for maintenance) Problem/Etiology/Signs/Symptoms Increased nutritional needs related to metabolic demands as evidenced by estimated nutritional requirements sepsis. (*ongoing) Expected Outcomes/Goals - Monitor EN tolerance and intakes w/ goal of pt meeting >80% of estimated nutritional needs, labs trending WNL, normal GI function, and skin integrity/wt maintenance Dietitian Recommendations * Recommend: Vital AF 1.2 at 10ml/hr x16 hrs prone position, and 130ml/hr x8 hrs supine position via OGT * Continue FWF 100ml Q6H via OGT Provides (w/ propofol): 2124 kcal, 90gm protein and 1373ml fluids daily (from EN and water flush) Meets: 95% of estimated calorie needs and 75% of lower end of estimated protein needs. Follow Up High Risk: F/U in 2-3days
--- NOTE | 2021-04-22 15:10 | NUR ---
Dietitian Recommendations * Recommend: Vital AF 1.2 at 10ml/hr x16 hrs prone position, and 130ml/hr x8 hrs supine position via OGT * Continue FWF 100ml Q6H via OGT Provides (w/ propofol): 2124 kcal, 90gm protein and 1373ml fluids daily (from EN and water flush) Meets: 95% of estimated calorie needs and 75% of lower end of estimated protein needs. Please see Nutrition F/U ALF, RD
--- NOTE | 2021-04-22 16:00 | NUR ---
TOF: 4/4, vecuronium 0.89 mcg/kg/min
--- NOTE | 2021-04-22 17:00 | NUR ---
1530 ASSITED IN TURNING PT SUPINE AND RETAPING @26CM LL. ETT SECURE AND PATENT.. RN AWARE, WILL CONT. TO MONITOR. Addendum: 04/22/21 at 1702 by Concha Menjivar RT Amended: Links added.
--- NOTE | 2021-04-22 19:30 | NUR ---
PM ASSESSMENT REPORT RECEIVED FROM AM RN. PT RECEIVED IN BED WITH EYES CLOSED, SEDATED. PT INTUBATED, VENT SETTINGS: PC 20, FIO2 50%, PEEP 15. ST ON MONITOR. MAYELA PICC INFUSING IVF AND IV DRIPS PER ORDERS. L NARE NGT RUNNING TF PER ORDERS. FC IN PLACE DRAINING URINE TO GRAVITY. HOB ELEVATED, BED IN LOWEST POSITION, CALL LIGHT IN REACH. WILL CONTINUE TO MONITOR PT.
--- NOTE | 2021-04-22 19:53 | NUR ---
Endorsed plan of care to RN.
--- NOTE | 2021-04-22 20:00 | NUR ---
TOF 4/4, VECURONIUM DRIP @ 0.89 MCG/KG/MIN
[2021-04-22] MEDS: traZODone HCL 50 MG TABLET (DESYREL) PO SCH (20:07)
[2021-04-22] MEDS: ALBUTEROL MDI INHALATION 8 GM INH INH SCH (20:21)
--- NOTE | 2021-04-22 21:36 | NUR ---
FAMILY PTS SISTER DUSTIN CALLED FOR AN UPDATE AT THIS TIME. UPDATE PROVIDED AND ALL QUESTIONS ANSWERED. WILL CONTINUE TO MONITOR PT.
[2021-04-22] MEDS: MIDAZOLAM IN NACL,ISO-OSMOT/PF 100 ML IV PRN (22:02)
--- NOTE | 2021-04-22 23:00 | NUR ---
PRONE PT PLACED IN PRONE POSITION AT THIS TIME. VSS, WILL CONTINUE TO MONITOR.
--- NOTE | 2021-04-22 23:51 | NUR ---
FAMILY PTS SISTER DUSTIN CALLED AGAIN FOR UPDATE ON PT STATUS. UPDATES PROVIDED AND ALL QUESTIONS ANSWERED.
[2021-04-23] VITALS (31 sets, daily range): BP systolic 115–177
--- NOTE | 2021-04-23 | NUR ---
TOF 4/4, VECURONIUM DRIP @ 0.89 MCG/KG/MIN
[2021-04-23] MEDS: NACL 0.9% 1,000 ML IV SCH ×2 (03:35→16:36)
[2021-04-23] MEDS: MORPHINE SULFATE IN 0.9 % NACL 100 ML IV PRN ×2 (03:40→18:59)
[2021-04-23] MEDS: PROPOFOL DRIP 100 ML IV PRN ×5 (03:41→23:30)
--- NOTE | 2021-04-23 04:00 | NUR ---
TOF 4/4, VECURONIUM 0.89 MCG/KG/MIN
--- NOTE | 2021-04-23 06:30 | NUR ---
FAMILY UPDATE PTS SISTER DUSTIN CALLED FOR UPDATE AT THIS TIME. PROVIDED PT UPDATES AND ANSWERED ALL QUESTIONS.
[2021-04-23 06:57] LABS: ALBUMIN 2.2 g/dL (3.4-4.8); CALCIUM 7.8 mg/dL (8.4-11.0); CREATININE 0.73 mg/dL (0.55-1.30); POTASSIUM 4.6 mmol/L (3.5-5.1); TOTAL BILIRUBIN 0.6 mg/dL (0.0-1.0)
[2021-04-23] MEDS: ALBUTEROL MDI INHALATION 8 GM INH INH SCH ×4 (07:14→19:40)
--- NOTE | 2021-04-23 07:17 | NUR ---
ENDORSEMENT BEDSIDE REPORT GIVEN TO AM RN USING SBAR APPROACH.
--- NOTE | 2021-04-23 07:17 | NUR ---
INITIAL REPORT Received report from night RN via SBAR report. Pt resting comfortably in prone position. No S&S of distress noted. Bed locked & in lowest position
[2021-04-23 07:50] LABS: BASOPHILS % (AUTO) 0.1 % (0.0-2.0); EOSINOPHILS % (AUTO) 0.2 % (0.0-4.0); HEMATOCRIT 41.2 % (36-54); HEMOGLOBIN 13.9 g/dL (14.0-18.0); LYMPHOCYTES # (AUTO) 0.4 K/uL (1.0-5.5); LYMPHOCYTES % (AUTO) 2.1 % (20.5-51.5); MEAN CORPUSCULAR HEMOGLOBIN 32 pg (27-31); MEAN CORPUSCULAR HGB CONC 34 % (32-36); MEAN CORPUSCULAR VOLUME 95 fL (79.0-98.0); MONOCYTES # (AUTO) 0.7 K/uL (0.0-1.0); MONOCYTES % (AUTO) 4.2 % (1.7-9.3); NEUTROPHILS # (AUTO) 15.9 K/uL (1.8-7.7); NEUTROPHILS % (AUTO) 93.4 % (40.0-70.0); PLATELET COUNT (AUTO) 113 K/uL (130-430); RED BLOOD CELL COUNT(AUTO) 4.36 MIL/uL (4.2-6.2); RED CELL DISTRIBUTION WIDTH 12.8 % (9.0-15.0)
[2021-04-23] MEDS: cefTRIAXone 1 GM IVPB PREMIX 50 ML IV SCH (09:30)
[2021-04-23] MEDS: PANTOPRAZOLE SODIUM 40 MG/VIAL (PROTONIX) IVP SCH (09:31)
[2021-04-23] MEDS: CHOLECALCIFEROL (VITAMIN D3) 5,000 UNIT TABLET PO SCH (09:31)
[2021-04-23] MEDS: APIXABAN 2.5 MG TABLET NG SCH ×2 (09:32→23:30)
[2021-04-23] MEDS: DEXAMETHASONE SOD PHOSPHATE 10 MG/ML VIAL IVP SCH ×2 (09:32→20:23)
[2021-04-23] MEDS: BARICITINIB -Non-Formulary 2 MG TABLET PO SCH (09:33)
[2021-04-23] MEDS: ASCORBIC ACID 500 MG TABLET PO SCH ×2 (09:33→20:24)
[2021-04-23] MEDS ORDERED: CALCIUM GLUCONATE 1 GM in NS 100 ML IV ONE (11:15)
--- NOTE | 2021-04-23 11:40 | NUR ---
TOF TOF 2/4 DECREASED VECURONIUM 0.7 MCG/KG/MIN = 4.6 ML/HR
[2021-04-23] MEDS: MIDAZOLAM IN NACL,ISO-OSMOT/PF 100 ML IV PRN ×2 (12:02→23:30)
--- NOTE | 2021-04-23 15:10 | NUR ---
POSITION REPOSITION PT TO SUPINE & TOF 4/4 -VECURONIUM 4 ML/HR
--- NOTE | 2021-04-23 15:52 | NUR ---
rt notes 1552 Pt unproned. Pt still on PC mode. Also changed ETT earl. ETT still at 7.5/26cm LL. pt saturating 90% on supine. will continue to monitor pt.
[2021-04-23] MEDS: VECURONIUM BROMIDE 50 MG in NS 50 ML IV PRN (16:19)
--- NOTE | 2021-04-23 19:30 | NUR ---
Opening Note Received report from AM nurse using SBAR approach.
--- NOTE | 2021-04-23 19:33 | NUR ---
SHIFT REPORT END OF SHIFT REPORT GIVEN TO ONCOMING RN. VERSED AT 7 MG/HR; MORPHINE AT 8 ML/HR, VECURONIUM @ 5 ML/HR; PROPOFOL @ 40 MCG/KG/MIN
--- NOTE | 2021-04-23 20:00 | NUR ---
TOF TOF 2/4 VECURONIUM 0.7 MCG/KG/MIN = 4.6 ML/HR
[2021-04-23] MEDS: traZODone HCL 50 MG TABLET (DESYREL) PO SCH (20:23)
--- NOTE | 2021-04-23 21:00 | NUR ---
Family Family, sister, called and asked for an update. Provided update for family and answered all questions.
--- NOTE | 2021-04-23 23:00 | NUR ---
Proned Proned patient. Patient tolerated well. No signs or symptoms of distress. Vital signs stable.
[2021-04-24] VITALS (31 sets, daily range): BP systolic 112–169
--- NOTE | 2021-04-24 | NUR ---
TOF TOF 2/4 VECURONIUM 0.7 MCG/KG/MIN = 4.6 ML/HR
[2021-04-24] MEDS: LABETALOL 100 MG/ 20ML VIAL IVP PRN ×2 (02:10→11:14)
--- NOTE | 2021-04-24 04:00 | NUR ---
TOF TOF 2/4 VECURONIUM 0.7 MCG/KG/MIN = 4.6 ML/HR
[2021-04-24] MEDS: VECURONIUM BROMIDE 50 MG in NS 50 ML IV PRN ×2 (05:00→13:47)
[2021-04-24] MEDS: NACL 0.9% 1,000 ML IV SCH ×2 (05:00→20:47)
--- NOTE | 2021-04-24 07:10 | NUR ---
Opening Note: Received SBAR report from night nurse. All cares assumed. Pt lying prone in bed. PC 20, 60%, PEEP 13.
[2021-04-24] MEDS: ALBUTEROL MDI INHALATION 8 GM INH INH SCH ×4 (07:58→19:44)
[2021-04-24] MEDS: cefTRIAXone 1 GM IVPB PREMIX 50 ML IV SCH (08:28)
[2021-04-24] MEDS: BARICITINIB -Non-Formulary 2 MG TABLET PO SCH (08:28)
[2021-04-24] MEDS: ASCORBIC ACID 500 MG TABLET PO SCH ×2 (08:29→20:47)
[2021-04-24] MEDS: DEXAMETHASONE SOD PHOSPHATE 10 MG/ML VIAL IVP SCH ×2 (08:29→20:47)
[2021-04-24] MEDS: CHOLECALCIFEROL (VITAMIN D3) 5,000 UNIT TABLET PO SCH (08:29)
[2021-04-24] MEDS: PANTOPRAZOLE SODIUM 40 MG/VIAL (PROTONIX) IVP SCH (08:29)
[2021-04-24] MEDS: APIXABAN 2.5 MG TABLET NG SCH ×2 (08:30→20:47)
[2021-04-24 10:43] LABS: BASOPHILS % (AUTO) 0.1 % (0.0-2.0); HEMATOCRIT 42.4 % (36-54); LYMPHOCYTES # (AUTO) 0.5 K/uL (1.0-5.5); LYMPHOCYTES % (AUTO) 2.1 % (20.5-51.5); MEAN CORPUSCULAR HEMOGLOBIN 30 pg (27-31); MEAN CORPUSCULAR HGB CONC 33 % (32-36); MEAN CORPUSCULAR VOLUME 91 fL (79.0-98.0); MONOCYTES # (AUTO) 1.1 K/uL (0.0-1.0); MONOCYTES % (AUTO) 5.2 % (1.7-9.3); NEUTROPHILS # (AUTO) 19.6 K/uL (1.8-7.7); NEUTROPHILS % (AUTO) 92.6 % (40.0-70.0); PLATELET COUNT (AUTO) 120 K/uL (130-430); RED BLOOD CELL COUNT(AUTO) 4.66 MIL/uL (4.2-6.2); RED CELL DISTRIBUTION WIDTH 12.9 % (9.0-15.0); WHITE BLOOD COUNT (AUTO) 21.2 K/uL (4.8-10.8)
[2021-04-24] MEDS: PROPOFOL DRIP 100 ML IV PRN (11:17)
--- NOTE | 2021-04-24 11:30 | NUR ---
LOW SAT. READING 80%, FIO2 INCREASED TO 100%.
[2021-04-24] MEDS: FLUCONAZOLE 200 mg/ NS 100 ML IV SCH (11:35)
--- NOTE | 2021-04-24 11:47 | NUR ---
RT NOTES RN increase FIO2 due to low saturation low to mid 80s. Titrated to 0.80 per titration order. Will monitor pt. RN made aware.
[2021-04-24] MEDS: PIPERACILLIN/TAZO 4.5GM/DEX-IS 100 ML IV SCH ×2 (13:26→23:03)
[2021-04-24] MEDS: MIDAZOLAM IN NACL,ISO-OSMOT/PF 100 ML IV PRN (13:45)
--- NOTE | 2021-04-24 15:35 | NUR ---
WOUND EVALUATION: Late note for 1534 secondary to patient care. Wound Consult received from Dr. Soares. Thank you, Dr. Soares, for the consult. Patient received in a Brigitte Bed with an Isoflex WILY mattress with low air loss therapy, obtunded, sedated. Patient is unable to turn in bed independently. Zach Score is a 13. Past Medical History: Hypertension, Obesity. Recent Labs: WBC 21.2, RBC 4.66, hemoglobin 14.0, hematocrit 42.4, platelets 120, ESR 31, sodium 147, chloride 112, BUN 40, creatinine 0.73, GFR 126, glucose 167, POC glucose 200, calcium 7.8, AST 59, ALT 45, albumin 2.1, serum total protein 6.0, PTT 23.3, fibrinogen 750, D-dimer 3290. Microbiology: Blood culture results x2 negative. MRSA screen results negative. Intrinsic factors that delay wound healing: Covid-19 Pneumonia, Hypoxic Respiratory Failure, Hypoalbuminemia. Extrinsic factors that delay wound healing: Immobility. Per assessment by Dr. Conner: 1. Covid-19 Pneumonia 2. Hypoxic Respiratory Failure 3. Unvaccinated status 4. Obesity Wound Assessment: 1. Left Cheek: Skin erosion from tape. Site has moist dark discolored skin with nonintact skin area in the middle with 100% red tissue. No odor, no drainage. Site measures 7.5 cm x 1.7 cm. Recommend: Cleanse site with normal saline. Place calcium alginate dressing on to site. Cover with nonadhesive foam dressing. Secure with transparent dressing. Perform site care daily, and as needed for dressing soiling or dislodgment. 2. Left Lateral Periorbital area: Skin tear. Site has 95% pink tissue, 5% black scab. No odor, no drainage. Periwound intact. Site measures 0.5 cm x 2.3 cm. Recommend: Cleanse site with normal saline. Place calcium alginate dressing on to site. Cover with nonadhesive foam dressing. Secure with transparent dressing. Perform site care daily, and as needed for dressing soiling or dislodgment. Also recommend: Reposition patient every 2 hours with pillow support and off-load pressure areas with pillows for pressure re-distribution. Offload, elevate and float bilateral heels with pillows. Perform skin care and monitor skin integrity Q shift. Use moisture barrier cream on buttocks and other moisture susceptible areas QID and as needed for soiling. Maintain patient on low air-loss therapy.
--- NOTE | 2021-04-24 16:00 | NUR ---
Genitourinary Minimal drainage noted from duarte, reddish sediment in catheter collar. Failed attempt to irrigate catheter with saline. Bladder firm and distended. Per Dr. Cruz, remove duarte catheter and insert a new catheter. 16Fr catheter placed, 10mL balloon inflated with sterile saline. Immediately obtained 1500mL burgundy, cloudy urine. Bladder no longer firm and distended post catheter placement.
--- NOTE | 2021-04-24 16:00 | NUR ---
CHG bath CHG bath complete. Linens changed. Pt turned from prone to supine position.
--- NOTE | 2021-04-24 16:05 | NUR ---
Neuro Assessment No response to TOF at level 10. No response to verbal, physical or painful stimuli. Pupils are 2mm and fixed. IV drips on hold. Will reassess neuro status.
--- NOTE | 2021-04-24 16:10 | NUR ---
IV DRIPS Difficulty in obtaining response to stimuli with TOF and physical and painful stimuli. Morphine, Versed, Vecuronium and Diprivan now on hold.
--- NOTE | 2021-04-24 19:08 | NUR ---
Closing Note SBAR report given to oncoming night nurse. All cares endorsed. Pt lying supine, bed low and locked position. PC 20, 80%, PEEP 13.
--- NOTE | 2021-04-24 19:30 | NUR ---
Opening note Received report from AM nurse using SBAR approach.
--- NOTE | 2021-04-24 19:45 | NUR ---
MD Dr. Cruz called and stated not to completely stop the sedation/drips.
[2021-04-24] MEDS: traZODone HCL 50 MG TABLET (DESYREL) PO SCH (20:47)
--- NOTE | 2021-04-24 21:30 | NUR ---
TOF Verconium 1 mcg/kg/min. TOF set to 8 (40 MV) 4/4 twitches.
--- NOTE | 2021-04-24 22:00 | NUR ---
Family Family, sister, called and asked for an update. provided update and answered all questions.
[2021-04-25] VITALS (36 sets, daily range): BP systolic 105–160
--- NOTE | 2021-04-25 | NUR ---
TOF Verconium 1 mcg/kg/min. TOF set to 8 (40 MV) 4/4 twitches.
--- NOTE | 2021-04-25 01:00 | NUR ---
Family Family, sister, called and asked for an update. provided update and answered all questions.
--- NOTE | 2021-04-25 04:00 | NUR ---
TOF Verconium 1 mcg/kg/min. TOF set to 8 (40 MV) 4/4 twitches.
[2021-04-25] MEDS: PIPERACILLIN/TAZO 4.5GM/DEX-IS 100 ML IV SCH ×3 (05:36→20:36)
[2021-04-25] MEDS: ALBUTEROL MDI INHALATION 8 GM INH INH SCH ×3 (07:00→19:47)
[2021-04-25 07:33] LABS: BASOPHILS # (AUTO) 0.1 K/uL (0.0-0.2); BASOPHILS % (AUTO) 0.4 % (0.0-2.0); EOSINOPHILS # (AUTO) 0.3 K/uL (0.0-0.4); EOSINOPHILS % (AUTO) 1.9 % (0.0-4.0); HEMATOCRIT 42.2 % (36-54); HEMOGLOBIN 14.2 g/dL (14.0-18.0); LYMPHOCYTES # (AUTO) 0.3 K/uL (1.0-5.5); MEAN CORPUSCULAR HEMOGLOBIN 31 pg (27-31); MEAN CORPUSCULAR HGB CONC 34 % (32-36); MEAN CORPUSCULAR VOLUME 92 fL (79.0-98.0); MONOCYTES # (AUTO) 0.7 K/uL (0.0-1.0); MONOCYTES % (AUTO) 4.1 % (1.7-9.3); NEUTROPHILS % (AUTO) 91.6 % (40.0-70.0); PLATELET COUNT (AUTO) 167 K/uL (130-430); RED BLOOD CELL COUNT(AUTO) 4.61 MIL/uL (4.2-6.2); RED CELL DISTRIBUTION WIDTH 12.7 % (9.0-15.0); WHITE BLOOD COUNT (AUTO) 16.4 K/uL (4.8-10.8)
--- NOTE | 2021-04-25 08:00 | NUR ---
pt intubated on pressure control, saturation 92-95%, tolerating settings. Stach on monitor. ngtube to left nares infusing tube feeding per order, no risidual noted. f/c draining to gravity. TOF 2/4. double lumen PICC noted to right arm intact and patent infusing medications per orders. safety maintained.
[2021-04-25 08:28] LABS: ALBUMIN 2.3 g/dL (3.4-4.8); CALCIUM 7.5 mg/dL (8.4-11.0); CREATININE 1.6 mg/dL (0.55-1.30); POTASSIUM 4.6 mmol/L (3.5-5.1); TOTAL BILIRUBIN 0.6 mg/dL (0.0-1.0)
[2021-04-25] MEDS: PROPOFOL DRIP 100 ML IV PRN ×2 (08:54→20:57)
[2021-04-25] MEDS: CHOLECALCIFEROL (VITAMIN D3) 5,000 UNIT TABLET PO SCH (08:55)
[2021-04-25] MEDS: PANTOPRAZOLE SODIUM 40 MG/VIAL (PROTONIX) IVP SCH (08:55)
[2021-04-25] MEDS: APIXABAN 2.5 MG TABLET NG SCH ×2 (08:55→20:00)
[2021-04-25] MEDS: ASCORBIC ACID 500 MG TABLET PO SCH ×2 (08:55→20:36)
[2021-04-25] MEDS: BARICITINIB -Non-Formulary 2 MG TABLET PO SCH (08:55)
--- NOTE | 2021-04-25 08:55 | NUR ---
Bedside RN and charge nurse witnessed TOF 2/4 as ordered with Vecuronium infusing at 1cc/hr on the pump.
[2021-04-25] MEDS: NACL 0.9% 1,000 ML IV SCH (08:56)
[2021-04-25] MEDS: DEXAMETHASONE SOD PHOSPHATE 10 MG/ML VIAL IVP SCH ×2 (08:56→19:57)
[2021-04-25] MEDS: cefTRIAXone 1 GM IVPB PREMIX 50 ML IV SCH (08:56)
[2021-04-25] MEDS: FLUCONAZOLE 200 mg/ NS 100 ML IV SCH (10:39)
--- NOTE | 2021-04-25 11:35 | NUR ---
RT NOTES Attempted to titrate FIO2 to 0.65 but pt desaturated to 89%. Will endorsed to RT Mare to tray again once pt is proned. RN made aware.
[2021-04-25] MEDS: MORPHINE SULFATE IN 0.9 % NACL 100 ML IV PRN (11:58)
--- NOTE | 2021-04-25 12:46 | NUR ---
CONSULT NEPHRO. CONSULTING MD: DR. REN (DR. GAFFNEY SUPERVISOR PACKING ROOM) PERSON NOTIFIED: KIERSTEN DIALED: [phone] ORDERED BY: Naman ROBERTSON
--- NOTE | 2021-04-25 16:00 | NUR ---
pt proned, tube feeding running at 10cc/hr per orders
[2021-04-25] MEDS: 0.45% NACL 1,000 ML IV SCH (16:32)
--- NOTE | 2021-04-25 17:04 | NUR ---
Nutrition F/U Admitting Diagnosis: COVID, pneumonia, respiratory failure Medical History Comment: PMH: HTN per physician notes Pt also found w/ sepsis per physician notes SARS-CoV-2 Ag (Rapid) Negative 04/14 & (PCR) Positive 04/14 Subjective Information: RD rounded to ICU. Pt remains in airborne isolation d/t COVID-19. RD bedside visit deferred. RD saw pt through glass window/door earlier this afternoon. TF was not infusing and pt was in supine position. Pt's primary RN reported that pt's TF was off d/t high GRV. She also stated that pt was not placed in prone positioning last night. She stated she would resume TF after her lunch break. RD relayed physician orders for TF rate of 10 ml/hr while pt is prone and 130 ml/hr while pt is supine -- RN acknowledged. Per EMR review, physician has documented that pt's oxygenation is worsening and now renal function is deteriorating; TF Rate: 50 ml 9/4; GRV: 130 ml 9/4; TF Intakes: 500 ml 9/4; last BM noted was on 04/18, which is 7 days ago; Zach scale: 15, no PIs noted. Pt is not meeting nutritional needs at this time, but current TF prescription continues adequate/appropriate. Current Diet Order/Nutrition Support: Vital AF 1.2 at 10 ml/hr x16 hrs prone position and 130 ml/hr x8 hrs supine position w/ Free Water Flush: 100Sml Q6H via OGT x3 days Pertinent Medications: VIT D3, eliquid, decadrone, VIT C, protonix IV, propofol at 32.387 ml/hr (855 kcal/day) Pertinent Labs: WBC 16.4 H, BG 252 H, POC BG 158 H, BUN 63 H, CRE 1.6 H, Na 151 H Ht: 5'8" Wt: 238#/108 kg (04/19) -- stable Body Mass Index: 36.18 kg/m2 (obesity class II) [place]/Adjusted Body Weight: IBW: 154#/70 kg. Adj IBW (obesity): 175#/80 kg Estimated Energy Expenditure (kcals/day) -- RD unable to retrieve new Ve via EMR, no changes in PSU made 2243 kcal/day (PSU for vent support) Estimated Protein Required (g/day) 120-160 gm/day (1.5-2 gm/kg Adj IBW d/t sepsis) Estimated Fluid Required (l/day) 2.4-2.8 L/day (1 ml/kcal/day for maintenance) Problem/Etiology/Signs/Symptoms Increased nutritional needs related to metabolic demands as evidenced by estimated nutritional requirements sepsis. (*ongoing) Expected Outcomes/Goals - Monitor EN tolerance and intakes w/ goal of pt meeting >80% of estimated nutritional needs, labs trending WNL, normal GI function, and skin integrity/wt maintenance Dietitian Recommendations * Recommend continuing Vital AF 1.2 at 10 ml/hr x16 hrs prone position and 130 ml/hr x8 hrs supine position w/ Free Water Flush: 100ml Q6H via OGT Provides (w/ propofol): 2295 kcal/day, 90 gm protein/day, and 1373 ml free water/day Meets: 102% of estimated caloric needs and 75% of lower end of estimated protein needs Follow Up High Risk: F/U in 2-3 days Addendum: 04/25/21 at [address] Nutrition Consult received d/t wounds 04/24/21 5111
--- NOTE | 2021-04-25 17:13 | NUR ---
Dietitian Recommendations * Recommend continuing Vital AF 1.2 at 10 ml/hr x16 hrs prone position and 130 ml/hr x8 hrs supine position w/ Free Water Flush: 100ml Q6H via OGT Provides (w/ propofol): 2295 kcal/day, 90 gm protein/day, and 1373 ml free water/day Meets: 102% of estimated caloric needs and 75% of lower end of estimated protein needs LP, RD Please refer to Nutrition F/U for details.
--- NOTE | 2021-04-25 19:30 | NUR ---
Opening Note Received report from AM nurse using SBAR approach.
--- NOTE | 2021-04-25 20:15 | NUR ---
Bedside RN and charge nurse witnessed TOF 2/4 as ordered with Vecuronium infusing at 1cc/hr on the pump.
[2021-04-25] MEDS: traZODone HCL 50 MG TABLET (DESYREL) PO SCH (20:36)
--- NOTE | 2021-04-25 21:15 | NUR ---
Family Patient's sister, Yumiko, called and asked for update. Provided update and answered all questions.
--- NOTE | 2021-04-25 23:32 | NUR ---
PAGED DR. KAUR [phone] SPOKE WITH KAJAL
--- NOTE | 2021-04-25 23:43 | NUR ---
Paged DR. Hill for proning orders.
[2021-04-26] VITALS (37 sets, daily range): BP systolic 114–150
--- NOTE | 2021-04-26 | NUR ---
TOF 2/4 as ordered with Vecuronium infusing at 1cc/hr on the pump.
--- NOTE | 2021-04-26 | NUR ---
Family Patient's sister, Yumiko, called and asked for update. Provided update and answered all questions.
[2021-04-26] MEDS: PROPOFOL DRIP 100 ML IV PRN ×2 (01:31→16:29)
--- NOTE | 2021-04-26 03:30 | NUR ---
Supine Supined patient and he tolerated well. No signs or symptoms of distress. Vital signs stable.
--- NOTE | 2021-04-26 04:00 | NUR ---
TOF 2/4 as ordered with Vecuronium infusing at 1cc/hr on the pump.
[2021-04-26] MEDS: 0.45% NACL 1,000 ML IV SCH (04:46)
[2021-04-26] MEDS: PIPERACILLIN/TAZO 4.5GM/DEX-IS 100 ML IV SCH ×3 (05:32→20:38)
--- NOTE | 2021-04-26 06:44 | NUR ---
Family Patient's sister, Yumiko, called and asked for update. Provided update and answered all questions.
[2021-04-26 06:58] LABS: BASOPHILS % (AUTO) 0.2 % (0.0-2.0); HEMATOCRIT 41.1 % (36-54); HEMOGLOBIN 13.6 g/dL (14.0-18.0); LYMPHOCYTES # (AUTO) 0.4 K/uL (1.0-5.5); LYMPHOCYTES % (AUTO) 2.4 % (20.5-51.5); MEAN CORPUSCULAR HEMOGLOBIN 31 pg (27-31); MEAN CORPUSCULAR HGB CONC 33 % (32-36); MONOCYTES # (AUTO) 0.7 K/uL (0.0-1.0); NEUTROPHILS # (AUTO) 15.7 K/uL (1.8-7.7); NEUTROPHILS % (AUTO) 93.4 % (40.0-70.0); PLATELET COUNT (AUTO) 155 K/uL (130-430); RED BLOOD CELL COUNT(AUTO) 4.37 MIL/uL (4.2-6.2); RED CELL DISTRIBUTION WIDTH 12.9 % (9.0-15.0); WHITE BLOOD COUNT (AUTO) 16.9 K/uL (4.8-10.8)
[2021-04-26] MEDS: ALBUTEROL MDI INHALATION 8 GM INH INH SCH ×4 (07:29→19:57)
--- NOTE | 2021-04-26 08:00 | NUR ---
PT VENTED, TOLERATING SETTINGS. PT IN SUPINE POSITION AT THIS TIME. PICC LINE TO MAYELA INFUSING MEDICATIONS PER ORDER. TOF 2/4 TESTED AT BEDSIDE WHILE ON VECURONIUM PER ORDERS. F/C DRAINING TO GRAVITY. TUBE FEEDING INFUSING PER ORDER. NO RISIDUAL NOTED. WILL CONTINUE TO MONITOR
[2021-04-26 08:39] LABS: ALBUMIN 2.1 g/dL (3.4-4.8); C-REACTIVE PROTEIN QUANT 2.3 mg/dL (0-0.5); CALCIUM 8.1 mg/dL (8.4-11.0); PHOSPHORUS 3.4 mg/dL (2.7-4.5); POTASSIUM 4.6 mmol/L (3.5-5.1); TOTAL BILIRUBIN 0.9 mg/dL (0.0-1.0)
[2021-04-26] MEDS: VECURONIUM BROMIDE 50 MG in NS 50 ML IV PRN (08:49)
[2021-04-26] MEDS: cefTRIAXone 1 GM IVPB PREMIX 50 ML IV SCH (09:00)
[2021-04-26] MEDS: CHOLECALCIFEROL (VITAMIN D3) 5,000 UNIT TABLET PO SCH (09:00)
[2021-04-26] MEDS: PANTOPRAZOLE SODIUM 40 MG/VIAL (PROTONIX) IVP SCH (09:00)
[2021-04-26] MEDS: ASCORBIC ACID 500 MG TABLET PO SCH ×2 (09:00→21:54)
[2021-04-26] MEDS: DEXAMETHASONE SOD PHOSPHATE 10 MG/ML VIAL IVP SCH ×2 (09:00→21:54)
[2021-04-26] MEDS: BARICITINIB -Non-Formulary 2 MG TABLET PO SCH (09:00)
[2021-04-26 10:29] LABS: MEAN CORPUSCULAR VOLUME 94 fL (79.0-98.0)
--- NOTE | 2021-04-26 11:00 | NUR ---
DR GARCIA HERE TO SEE PT, ORDERS TO TITRATE SPO2 TO 50% KEEPING SATURATION 90% OR GREATER. RT AWARE. PT CURRENT AT 55% SPO2.
[2021-04-26] MEDS: FLUCONAZOLE 200 mg/ NS 100 ML IV SCH (11:25)
[2021-04-26 11:57] LABS: ERYTHROCYTE SEDIMENTATION RATE 23 MM/HR (0-15)
--- NOTE | 2021-04-26 12:00 | NUR ---
PT PRONED, TUBE FEEDING RUNNING AT 10ML/HR PER ORDERS. TOLERATING WELL.
--- NOTE | 2021-04-26 14:00 | NUR ---
FIO2 TITRATED TO 55% SATURATION RANGING FROM 89-91%. WILL CONTINUE TO MONITOR.
[2021-04-26] MEDS: D5W 1,000 ML IV SCH (14:01)
--- NOTE | 2021-04-26 19:29 | NUR ---
spoke to dr taveras with orders for bc x2 Addendum: 04/26/21 at 1930 by Frances Gomez RN documented in error
--- NOTE | 2021-04-26 19:30 | NUR ---
Received SBAR report from off coming RN for continuity of care, pt in the prone position. Pt on ventilator, maintaining oxygen saturations 90-92%. Morphine gtt infusing @ 6 mg/hr, Versed gtt @ 6 mg/hr, Diprivan gtt @ 50 mcg/kg/min, Vecuronium gtt @ 2.2 ml/hr.
--- NOTE | 2021-04-26 20:15 | NUR ---
Pt laying in bed in prone position, pt intubated and on ventilator. Oxygen saturations maintained 90-92% with FiO2 at 55%. Provided PO care and suctioning, pt tolerated well. NG tube in place, tube feeding infusing @ 10 ml/hr, no residuals obtained. Morphine gtt infusing @ 6 mg/hr, Versed gtt @ 6 mg/hr, Diprivan gtt @ 50 mcg/kg/min, Vecuronium gtt infusing @ 2.2 ml/hr. TOF 2/4 tested. Hui catheter in place and draining to gravity. Bed locked and in lowest position, safety precautions in place.
--- NOTE | 2021-04-26 21:47 | NUR ---
Sister Yumiko called for updates, updates provided and all questions answered.
[2021-04-26] MEDS: traZODone HCL 50 MG TABLET (DESYREL) PO SCH (21:54)
[2021-04-26] MEDS: APIXABAN 2.5 MG TABLET NG SCH (21:55)
[2021-04-27] VITALS (29 sets, daily range): BP systolic 106–148
--- NOTE | 2021-04-27 00:15 | NUR ---
Vecuronium gtt infusing @ 2.2 ml/hr. TOF 2/4 tested.
[2021-04-27] MEDS: MIDAZOLAM IN NACL,ISO-OSMOT/PF 100 ML IV PRN ×2 (00:45→15:25)
[2021-04-27] MEDS: PROPOFOL DRIP 100 ML IV PRN ×4 (01:30→21:17)
[2021-04-27] MEDS: D5W 1,000 ML IV SCH ×2 (03:20→11:28)
--- NOTE | 2021-04-27 04:00 | NUR ---
Proned patient @ 0400, pt tolerated well. Addendum: 04/27/21 at 0735 by Jenna Bach RN MEANT SUPINE NOT PRONE
--- NOTE | 2021-04-27 04:00 | NUR ---
Placed patient in supine position @ 0400, pt tolerated well.
--- NOTE | 2021-04-27 04:15 | NUR ---
Vecuronium gtt infusing @ 2.2 ml/hr. TOF 2/4 tested.
--- NOTE | 2021-04-27 05:00 | NUR ---
CHG bath and full bed bath done, pt tolerated well.
[2021-04-27] MEDS: PIPERACILLIN/TAZO 4.5GM/DEX-IS 100 ML IV SCH ×3 (05:55→20:24)
[2021-04-27 07:01] LABS: BASOPHILS % (AUTO) 0.2 % (0.0-2.0); EOSINOPHILS % (AUTO) 0.1 % (0.0-4.0); HEMATOCRIT 38.1 % (36-54); HEMOGLOBIN 12.7 g/dL (14.0-18.0); LYMPHOCYTES # (AUTO) 0.5 K/uL (1.0-5.5); LYMPHOCYTES % (AUTO) 3.8 % (20.5-51.5); MEAN CORPUSCULAR HEMOGLOBIN 31 pg (27-31); MEAN CORPUSCULAR HGB CONC 33 % (32-36); MEAN CORPUSCULAR VOLUME 92 fL (79.0-98.0); MONOCYTES # (AUTO) 0.6 K/uL (0.0-1.0); MONOCYTES % (AUTO) 4.3 % (1.7-9.3); NEUTROPHILS # (AUTO) 13.2 K/uL (1.8-7.7); NEUTROPHILS % (AUTO) 91.6 % (40.0-70.0); PLATELET COUNT (AUTO) 159 K/uL (130-430); RED BLOOD CELL COUNT(AUTO) 4.12 MIL/uL (4.2-6.2); RED CELL DISTRIBUTION WIDTH 13.2 % (9.0-15.0); WHITE BLOOD COUNT (AUTO) 14.4 K/uL (4.8-10.8)
--- NOTE | 2021-04-27 07:30 | NUR ---
Endorsed SBAR report to oncoming RN for continuity of care.
--- NOTE | 2021-04-27 08:00 | NUR ---
AM ASSESSMENT PT AFEBRILE, EYES CLOSED, EYELIDS CLAMPED AND DRYNESS NOTED, WASHED SKIN AROUND THE EYES WITH WET TOWEL, ORAL CARE DONE, PT RECEIVING PROPOFOL DRIP, MORPHINE DRIP, VERSED DRIP, VECURONIUM DRIP. ABRASION TO LEFT PERIORBITAL PART CLEANSED WITH SALINE, PAT DRY AND APPLIED Z-GUARD LOTION.
--- NOTE | 2021-04-27 08:30 | NUR ---
RESPIRATORY. PT'S O2 SAT READING IN THE 50'S TO 80'S, R.T. TURNED FIO2 TO 75% ON THE VENTILATOR. PT TACHYPNEIC, TACHYCARDIC, DIPRIVAN TITRATED TO 50 MCG/KG/MIN, FOLLOWED BY MORPHINE, VERSED DRIP TO 8 MG/HR. TITRATED UP THE VECURONIUM DRIP. WILL CONTINUE TO MONITOR PT.
--- NOTE | 2021-04-27 08:46 | NUR ---
0840 fio2 to .75 pt agitated and desat. rn aware. Addendum: 04/27/21 at 0847 by Concha Menjivar RT Amended: Links added.
[2021-04-27] MEDS: ALBUTEROL MDI INHALATION 8 GM INH INH SCH ×4 (08:48→19:00)
--- NOTE | 2021-04-27 09:00 | NUR ---
HIGH ALERT NOTE: Dr. Hernandez at bedside when he verbally ordered Rocuronium 25 mg IVP one time. I recognize him.
[2021-04-27] MEDS ORDERED: VECURONIUM BROMIDE 10 MG/VIAL (NORCURON) ONE (09:19)
[2021-04-27] MEDS: cefTRIAXone 1 GM IVPB PREMIX 50 ML IV SCH (09:30)
[2021-04-27] MEDS: DEXAMETHASONE SOD PHOSPHATE 10 MG/ML VIAL IVP SCH ×2 (09:34→20:23)
[2021-04-27] MEDS: PANTOPRAZOLE SODIUM 40 MG/VIAL (PROTONIX) IVP SCH (09:34)
[2021-04-27] MEDS: ASCORBIC ACID 500 MG TABLET PO SCH ×2 (09:35→20:24)
[2021-04-27] MEDS: CHOLECALCIFEROL (VITAMIN D3) 5,000 UNIT TABLET PO SCH (09:35)
[2021-04-27] MEDS: APIXABAN 2.5 MG TABLET NG SCH (09:36)
[2021-04-27] MEDS ORDERED: VECURONIUM BROMIDE 10 MG/VIAL (NORCURON) IVP ONE (09:45)
[2021-04-27] MEDS ORDERED: ENOXAPARIN SODIUM 40 MG/0.4 ML SYRINGE SUBCUT ONE (09:45)
[2021-04-27] MEDS: VECURONIUM BROMIDE 10 MG/VIAL (NORCURON) IVP ONE ×2 (09:45→10:58)
[2021-04-27 10:02] LABS: ERYTHROCYTE SEDIMENTATION RATE 31 MM/HR (0-15)
--- NOTE | 2021-04-27 10:08 | NUR ---
XRAY CHEST XRAY DONE AT BEDSIDE
[2021-04-27] MEDS: BARICITINIB -Non-Formulary 2 MG TABLET PO SCH (11:04)
[2021-04-27] MEDS: FLUCONAZOLE 200 mg/ NS 100 ML IV SCH (11:04)
[2021-04-27 11:25] LABS: C-REACTIVE PROTEIN QUANT 2.2 mg/dL (0-0.5); CALCIUM 7.8 mg/dL (8.4-11.0); CREATININE 0.8 mg/dL (0.55-1.30); POTASSIUM 4.7 mmol/L (3.5-5.1); TOTAL BILIRUBIN 0.6 mg/dL (0.0-1.0)
--- NOTE | 2021-04-27 11:50 | NUR ---
Wound care Dressing from left cheek removed, cleansed wound with saline, pat dry, covered with alginate and foam dressing. R.T. retaped ETT gently.
[2021-04-27] MEDS ORDERED: ROCURONIUM BROMIDE 10 MG/ML (ZEMURON) IV ONE ×2 (14:31→16:15)
--- NOTE | 2021-04-27 15:37 | NUR ---
1200 ASSISTED JENNYFER PT. ETT SECURE AND PATENT. Addendum: 04/27/21 at 1538 by Concha Menjivar RT Amended: Links added.
--- NOTE | 2021-04-27 16:18 | NUR ---
IV MEDS NEW ORDERS RECEIVED FROM DR DIAZ, MEDICATED PT WITH ROCURONIUM 50 MG IVP. PT'S HEART RATE IN THE HIGH 120'S. Addendum: 04/27/21 at 1903 by Katy Skaggs RN ROCURONIUM 25 MG IVP WAS GIVEN.
[2021-04-27] MEDS: MORPHINE SULFATE IN 0.9 % NACL 100 ML IV PRN (18:13)
[2021-04-27] MEDS: ACETAMINOPHEN 500 MG TABLET PO PRN (18:56)
--- NOTE | 2021-04-27 19:43 | NUR ---
PAGED DR. NOEL FOR ORDERS SPOKE TO:WADE
--- NOTE | 2021-04-27 19:45 | NUR ---
MD Dr. James paged for patient's Heart rate in the 130's. Awaiting call back.
--- NOTE | 2021-04-27 20:04 | NUR ---
PAGED FOR ORDERS SPOKE TO:KEIRA
[2021-04-27] MEDS: traZODone HCL 50 MG TABLET (DESYREL) PO SCH (20:24)
[2021-04-27] MEDS: ENOXAPARIN SODIUM 40 MG/0.4 ML SYRINGE SUBCUT SCH (20:29)
--- NOTE | 2021-04-27 20:30 | NUR ---
Paged Dr. Hernandez. New orders received.
[2021-04-27] MEDS: ROCURONIUM BROMIDE 10 MG/ML (ZEMURON) IV PRN (22:30)
[2021-04-28] VITALS (30 sets, daily range): BP systolic 90–133
[2021-04-28] MEDS: MIDAZOLAM IN NACL,ISO-OSMOT/PF 100 ML IV PRN ×3 (03:00→21:59)
--- NOTE | 2021-04-28 03:30 | NUR ---
SUPINE Placed patient on his back. Patient tolerated well. Vital signs stable. No signs or symptoms of distress noted.
[2021-04-28] MEDS: ROCURONIUM BROMIDE 10 MG/ML (ZEMURON) IV PRN (03:35)
[2021-04-28] MEDS: D5W 1,000 ML IV SCH ×2 (05:05→15:50)
[2021-04-28] MEDS: PIPERACILLIN/TAZO 4.5GM/DEX-IS 100 ML IV SCH ×3 (05:05→21:59)
[2021-04-28] MEDS: MORPHINE SULFATE IN 0.9 % NACL 100 ML IV PRN ×2 (05:09→15:49)
--- NOTE | 2021-04-28 05:30 | NUR ---
Family Family, Yumiko, called and asked for an update. Provided update to family and answered all questions.
--- NOTE | 2021-04-28 07:15 | NUR ---
SBAR report received from night nurse, all cares assumed. Pt lying supine, intubated, sedated. Vent settings: AC 20, TV 400, 55%, PEEP 13.
--- NOTE | 2021-04-28 07:59 | NUR ---
Vent setting change to AC [address] Hernandez. Orders placed, RT aware.
[2021-04-28] MEDS: DEXAMETHASONE SOD PHOSPHATE 10 MG/ML VIAL IVP SCH ×2 (08:03→19:54)
[2021-04-28] MEDS: PANTOPRAZOLE SODIUM 40 MG/VIAL (PROTONIX) IVP SCH (08:03)
[2021-04-28] MEDS: ASCORBIC ACID 500 MG TABLET PO SCH ×2 (08:04→19:55)
[2021-04-28] MEDS: BARICITINIB -Non-Formulary 2 MG TABLET PO SCH (08:04)
[2021-04-28] MEDS: ENOXAPARIN SODIUM 40 MG/0.4 ML SYRINGE SUBCUT SCH ×2 (08:04→20:32)
[2021-04-28] MEDS: PROPOFOL DRIP 100 ML IV PRN ×4 (08:06→20:31)
[2021-04-28 08:09] LABS: BASOPHILS % (AUTO) 0.2 % (0.0-2.0); HEMATOCRIT 33.4 % (36-54); HEMOGLOBIN 11.2 g/dL (14.0-18.0); LYMPHOCYTES # (AUTO) 0.7 K/uL (1.0-5.5); LYMPHOCYTES % (AUTO) 4.7 % (20.5-51.5); MEAN CORPUSCULAR HEMOGLOBIN 31 pg (27-31); MEAN CORPUSCULAR HGB CONC 34 % (32-36); MEAN CORPUSCULAR VOLUME 92 fL (79.0-98.0); MONOCYTES # (AUTO) 1.3 K/uL (0.0-1.0); MONOCYTES % (AUTO) 8.9 % (1.7-9.3); NEUTROPHILS # (AUTO) 12.6 K/uL (1.8-7.7); NEUTROPHILS % (AUTO) 86.2 % (40.0-70.0); PLATELET COUNT (AUTO) 173 K/uL (130-430); RED BLOOD CELL COUNT(AUTO) 3.63 MIL/uL (4.2-6.2); RED CELL DISTRIBUTION WIDTH 12.7 % (9.0-15.0); WHITE BLOOD COUNT (AUTO) 14.6 K/uL (4.8-10.8)
[2021-04-28 08:24] LABS: ALBUMIN 1.8 g/dL (3.4-4.8); CALCIUM 7.7 mg/dL (8.4-11.0); CREATININE 0.84 mg/dL (0.55-1.30); POTASSIUM 4.4 mmol/L (3.5-5.1); TOTAL BILIRUBIN 0.5 mg/dL (0.0-1.0)
[2021-04-28] MEDS: CHOLECALCIFEROL (VITAMIN D3) 5,000 UNIT TABLET PO SCH (08:37)
[2021-04-28] MEDS: ALBUTEROL MDI INHALATION 8 GM INH INH SCH ×4 (08:50→19:00)
--- NOTE | 2021-04-28 09:00 | NUR ---
Family update Sister of pt called, update given, all questions answered.
[2021-04-28] MEDS: FLUCONAZOLE 200 mg/ NS 100 ML IV SCH (11:27)
[2021-04-28] MEDS: VECURONIUM BROMIDE 50 MG in NS 50 ML IV PRN (11:27)
--- NOTE | 2021-04-28 11:30 | NUR ---
Pt turned prone with assist of staff and RT. O2 sats increased, RT decreased PEEP to 12. Will continue to monitor.
[2021-04-28] MEDS: cefTRIAXone 1 GM IVPB PREMIX 50 ML IV SCH (11:38)
--- NOTE | 2021-04-28 13:38 | NUR ---
Dietitian Recommendations * Recommend continuing Vital AF 1.2 at 10 ml/hr x16 hrs prone position and 130 ml/hr x8 hrs supine position w/ Free Water Flush: 100ml Q6H via OGT Provides (w/ propofol and D5%): 2601 kcal/day, 90 gm protein/day, and 1573 ml free water/day Meets: 123% of estimated caloric needs and 75% of lower end of estimated protein needs Please see Nutrition F/U JAIL, RD
--- NOTE | 2021-04-28 19:05 | NUR ---
Closing Note: SBAR report given to night nurse, all cares endorsed. Pt laying prone, intubated, sedated.
--- NOTE | 2021-04-28 19:30 | NUR ---
OPENING NOTE Received report from AM nurse using SBAR approach.
[2021-04-28] MEDS: traZODone HCL 50 MG TABLET (DESYREL) PO SCH (19:55)
--- NOTE | 2021-04-28 22:00 | NUR ---
BM patient had a large BM. Cleaned with towels. patient tolerated well. no signs or symptoms of distress
[2021-04-29] VITALS (34 sets, daily range): BP systolic 97–164
--- NOTE | 2021-04-29 | NUR ---
Family Family, flaco called and asked for an update. Provided update and answered all questions.
[2021-04-29] MEDS: PROPOFOL DRIP 100 ML IV PRN ×4 (00:23→15:46)
[2021-04-29] MEDS: MORPHINE SULFATE IN 0.9 % NACL 100 ML IV PRN ×2 (02:33→20:40)
[2021-04-29] MEDS: VECURONIUM BROMIDE 50 MG in NS 50 ML IV PRN ×3 (02:39→16:59)
--- NOTE | 2021-04-29 04:00 | NUR ---
Supine Placed patient on the supine position. Patient tolerated well. no signs or symptoms of distress noted. Will continue to monitor.
[2021-04-29] MEDS: PIPERACILLIN/TAZO 4.5GM/DEX-IS 100 ML IV SCH ×3 (05:53→21:08)
--- NOTE | 2021-04-29 06:04 | NUR ---
Family Family, flaco, called and asked for an update. Provided update and answered all questions.
[2021-04-29 06:27] LABS: BASOPHILS % (AUTO) 0.2 % (0.0-2.0); HEMATOCRIT 33.6 % (36-54); HEMOGLOBIN 11.3 g/dL (14.0-18.0); LYMPHOCYTES # (AUTO) 0.4 K/uL (1.0-5.5); LYMPHOCYTES % (AUTO) 2.8 % (20.5-51.5); MEAN CORPUSCULAR HEMOGLOBIN 31 pg (27-31); MEAN CORPUSCULAR HGB CONC 34 % (32-36); MEAN CORPUSCULAR VOLUME 93 fL (79.0-98.0); MONOCYTES # (AUTO) 0.8 K/uL (0.0-1.0); MONOCYTES % (AUTO) 5.1 % (1.7-9.3); NEUTROPHILS # (AUTO) 14.5 K/uL (1.8-7.7); NEUTROPHILS % (AUTO) 91.9 % (40.0-70.0); PLATELET COUNT (AUTO) 165 K/uL (130-430); RED CELL DISTRIBUTION WIDTH 12.8 % (9.0-15.0); WHITE BLOOD COUNT (AUTO) 15.8 K/uL (4.8-10.8)
[2021-04-29 06:35] LABS: ALBUMIN 1.9 g/dL (3.4-4.8); CALCIUM 8.1 mg/dL (8.4-11.0); CREATININE 0.77 mg/dL (0.55-1.30); POTASSIUM 4.4 mmol/L (3.5-5.1); TOTAL BILIRUBIN 0.5 mg/dL (0.0-1.0)
--- NOTE | 2021-04-29 07:19 | NUR ---
OPENING NOTE: REPORT RECEIVED FROM OUTGOING NOC RN, ALL CARES ASSUMED.
[2021-04-29] MEDS: ALBUTEROL MDI INHALATION 8 GM INH INH SCH ×4 (07:40→20:10)
--- NOTE | 2021-04-29 08:16 | NUR ---
DR. DIAZ MAKING ROUNDS ON PATIENT, VERBAL REPORT GIVEN. NEW VERBAL ORDERS OBTAINED AND TRANSCRIBED.
--- NOTE | 2021-04-29 08:17 | NUR ---
DR. NOEL MAKING ROUNDS ON PATIENT, VERBAL REPORT GIVEN.
[2021-04-29] MEDS ORDERED: NALOXONE HCL 0.4 MG/ML AMP (NARCAN) IVP PRN (08:30)
[2021-04-29] MEDS ORDERED: MIDAZOLAM IN NACL,ISO-OSMOT/PF 100 ML IV PRN (08:30)
--- NOTE | 2021-04-29 08:53 | NUR ---
Dr. Hernandez called unit, left new order to increase water flush for GT by 100 ml. Carried out.
--- NOTE | 2021-04-29 08:58 | NUR ---
PCR NASAL SWAB OBTAINED AND BROUGHT TO LAB FOR ANALYSIS.
[2021-04-29] MEDS: BARICITINIB -Non-Formulary 2 MG TABLET PO SCH (09:03)
[2021-04-29] MEDS: ASCORBIC ACID 500 MG TABLET PO SCH ×2 (09:03→20:32)
[2021-04-29] MEDS: CHOLECALCIFEROL (VITAMIN D3) 5,000 UNIT TABLET PO SCH (09:03)
[2021-04-29] MEDS: DEXAMETHASONE SOD PHOSPHATE 10 MG/ML VIAL IVP SCH ×2 (09:04→20:32)
[2021-04-29] MEDS: PANTOPRAZOLE SODIUM 40 MG/VIAL (PROTONIX) IVP SCH (09:04)
[2021-04-29] MEDS: cefTRIAXone 1 GM IVPB PREMIX 50 ML IV SCH (09:04)
[2021-04-29] MEDS: ENOXAPARIN SODIUM 40 MG/0.4 ML SYRINGE SUBCUT SCH ×2 (09:05→20:40)
--- NOTE | 2021-04-29 10:40 | NUR ---
FEEDING OFF FOR PRONING PREPARATION
[2021-04-29] MEDS: FLUCONAZOLE 200 mg/ NS 100 ML IV SCH (11:03)
[2021-04-29] MEDS: ROCURONIUM BROMIDE 10 MG/ML (ZEMURON) IV PRN (14:51)
[2021-04-29] MEDS: LABETALOL 100 MG/ 20ML VIAL IVP PRN (14:51)
--- NOTE | 2021-04-29 19:30 | NUR ---
Opening note Received report from AM nurse using SBAR approach.
[2021-04-29] MEDS: traZODone HCL 50 MG TABLET (DESYREL) PO SCH (20:32)
[2021-04-29] MEDS: MIDAZOLAM IN NACL,ISO-OSMOT/PF 100 ML IV PRN (20:41)
--- NOTE | 2021-04-29 21:00 | NUR ---
Family Family, Yumiko, called and asked for updates. Provided update and answered all questions.
[2021-04-30] VITALS (34 sets, daily range): BP systolic 78–137
--- NOTE | 2021-04-30 | NUR ---
BM Patient had one bowel movement. Cleaned patient and he tolerated well.
--- NOTE | 2021-04-30 04:00 | NUR ---
Supine Placed patient in supine position. patient tolerated well. Vital signs stable
--- NOTE | 2021-04-30 05:00 | NUR ---
Family Family, flaco called and asked for update. Answered all questions.
[2021-04-30] MEDS: PIPERACILLIN/TAZO 4.5GM/DEX-IS 100 ML IV SCH ×3 (05:41→22:17)
[2021-04-30] MEDS: VECURONIUM BROMIDE 50 MG in NS 50 ML IV PRN ×3 (05:43→22:24)
[2021-04-30] MEDS: PROPOFOL DRIP 100 ML IV PRN ×3 (07:17→18:32)
--- NOTE | 2021-04-30 07:17 | NUR ---
OPENING NOTE Received report from NOC RN nurse using SBAR approach.
--- NOTE | 2021-04-30 07:44 | NUR ---
QUANTITATIVE RESEARCHER AT BEDSIDE PERFORMING LAB DRAW.
[2021-04-30] MEDS: PANTOPRAZOLE SODIUM 40 MG/VIAL (PROTONIX) IVP SCH (08:24)
[2021-04-30] MEDS: cefTRIAXone 1 GM IVPB PREMIX 50 ML IV SCH (08:25)
[2021-04-30] MEDS: CHOLECALCIFEROL (VITAMIN D3) 5,000 UNIT TABLET PO SCH (08:25)
[2021-04-30] MEDS: ASCORBIC ACID 500 MG TABLET PO SCH ×2 (08:25→20:26)
[2021-04-30] MEDS: DEXAMETHASONE SOD PHOSPHATE 10 MG/ML VIAL IVP SCH ×2 (08:26→20:28)
[2021-04-30] MEDS: ENOXAPARIN SODIUM 40 MG/0.4 ML SYRINGE SUBCUT SCH ×2 (08:26→20:29)
[2021-04-30] MEDS: BARICITINIB -Non-Formulary 2 MG TABLET PO SCH (08:27)
[2021-04-30 09:24] LABS: HEMATOCRIT 36.2 % (36-54); HEMOGLOBIN 11.8 g/dL (14.0-18.0); MEAN CORPUSCULAR HEMOGLOBIN 30 pg (27-31); MEAN CORPUSCULAR HGB CONC 33 % (32-36); MEAN CORPUSCULAR VOLUME 93 fL (79.0-98.0); PLATELET COUNT (AUTO) 112 K/uL (130-430); RED BLOOD CELL COUNT(AUTO) 3.88 MIL/uL (4.2-6.2); RED CELL DISTRIBUTION WIDTH 13.5 % (9.0-15.0)
--- NOTE | 2021-04-30 09:33 | NUR ---
DR. HENDERSON ROUNDING ON PATIENT, REPORT GIVEN NO NEW ORDERS AT THIS TIME.
[2021-04-30 09:52] LABS: ALBUMIN 1.7 g/dL (3.4-4.8); CALCIUM 8.4 mg/dL (8.4-11.0); CREATININE 0.62 mg/dL (0.55-1.30); POTASSIUM 5.1 mmol/L (3.5-5.1); TOTAL BILIRUBIN 0.6 mg/dL (0.0-1.0)
[2021-04-30 09:59] LABS: BAND % (MANUAL) 10 % (0-6); BASOPHILS % (MANUAL) 0 % (0-2); EOSINOPHILS % (MANUAL) 0 % (0-7); LYMPHOCYTES % (MANUAL) 4 % (20-46); MONOCYTES % (MANUAL) 1 % (0-11)
[2021-04-30] MEDS: FLUCONAZOLE 200 mg/ NS 100 ML IV SCH (10:18)
--- NOTE | 2021-04-30 11:30 | NUR ---
DUSTIN (SISTER) CALLED, UPDATES GIVEN. ALL QUESTIONS ANSWERED AT THIS TIME.
--- NOTE | 2021-04-30 12:00 | NUR ---
RT NOTES Assisted in proning pt. A/w remains secure/patent. CPT done, which pt. tolerated well.
--- NOTE | 2021-04-30 12:05 | NUR ---
PATIENT PRONED WITH RT ASSISTANCE.
--- NOTE | 2021-04-30 12:45 | NUR ---
RT NOTES Pt started to desaturate to mid 80's, minimal improvement noted despite increased FIO2 to 100% and PEEP to 12. H.R is elevated as well. PIP & MAP are elevated despite no resistance when sxn catheter was advanced.
[2021-04-30] MEDS: ROCURONIUM BROMIDE 10 MG/ML (ZEMURON) IV PRN ×3 (12:55→21:59)
[2021-04-30] MEDS: GENTAMICIN SULFATE 200 MG in NS 100 ML IV SCH ×2 (12:56→20:27)
--- NOTE | 2021-04-30 14:30 | NUR ---
RT NOTES Pt was unproned, ETT remained secure/patent. Saturation currently 92%.
--- NOTE | 2021-04-30 14:31 | NUR ---
PATIENT UN-PRONED, PATIENT WAS NOT TOLERATING PRONING CONTINUE TO DECREASE IN OXYGEN SATURATION TO LOW 60'S, WITH ASSISTANCE PATIENT PLACED BACK TO SUPINE POSITION. ABG AND CHEST X-RAY ORDERED PLACED FOR EVALUATION
--- NOTE | 2021-04-30 14:40 | NUR ---
X-RAY TECH AT BEDSIDE PERFORMING IMAGING.
--- NOTE | 2021-04-30 14:50 | NUR ---
X-RAY RESULTS OBTAINED, PAGED AND NOTIFIED, PENDING RETURN CALL.
--- NOTE | 2021-04-30 14:55 | NUR ---
DR. KAUR ON UNIT AND AWARE OF X-RAY RESULTS, MD TO PLACE RIGHT SIDED CHEST TUBE AT BEDSIDE.
--- NOTE | 2021-04-30 15:00 | NUR ---
CONSENT OBTAINED BY FROM SISTER OVER PHONE (DUSTIN), WITNESSED BY RN.
[2021-04-30] MEDS: LABETALOL 100 MG/ 20ML VIAL IVP PRN (15:02)
[2021-04-30] MEDS ORDERED: NOREPINEPHRINE 4 MG/4 ML VIAL IV ONE (15:13)
--- NOTE | 2021-04-30 15:30 | NUR ---
DR. KAUR PLACED 24 F CHEST TUBE USING STERILE TECHNIQUE INTO RIGHT SIDE, DRAINIAGE SYSTEM HANGING BELOW LEVEL OF CHEST, BUBBLING AND TIDALING NOTED IN CHAMBERS. PATIENT TOLERATED PROCEDURE WELL WITH NO ACUTE DISTRESS NOTED.
[2021-04-30] MEDS ORDERED: LIDOCAINE 1%, 20 ML MDV 20 ML ONE (15:40)
[2021-04-30] MEDS: NOREPINEPHRINE BITARTRATE 16 MG in NS 234 ML IV PRN (17:55)
--- NOTE | 2021-04-30 18:48 | NUR ---
AND SISTER OUTSIDE OF ROOM, UPDATES GIVEN AND ALL QUESTIONS ANSWERED.
--- NOTE | 2021-04-30 19:24 | NUR ---
SBAR report given to night nurse, all cares endorsed. Pt sedated, intubated, laying supine in bed.
--- NOTE | 2021-04-30 19:30 | NUR ---
Pt report received. Pt sedated, mechanically ventilated with 7.5 ETT, settings: A/C, 26, 400, 100%, 13. Respirations even with symmetrical chest rise. Diminished breath sounds to Right lung lazo. Chest tube to right upper lateral chest, dressing clean, dry, intact. Pleur-Evac secure, connected to wall suction with bubbling to water seal chamber. No drainage noted to tubing or Pleur-Evac collection chamber. Palor noted to skin. NGT patent and secure to Left Nare with Vital A/F 1.2 at 50 mL/hr with 50 mL residual noted. Abdomen distended and firm to touch, hypoactive bowel sounds. Right PICC line secure and patent with Levophed at 0.42 mcg/kg/min, Propofol at 25 mcg/kg/min, Vecuronium at 7.77 mcg/kg/min, Morphine Drip at 8 mL/hr, Versed Drip at 7 mL/hr. TOF at 2/4, setting of 8. Scrotal swelling noted. F/C secure draining dark madonna urine. 2+ pitting edema generalized to extremities. VSS.
[2021-04-30] MEDS: traZODone HCL 50 MG TABLET (DESYREL) PO SCH (20:26)
[2021-04-30] MEDS ORDERED: MIDAZOLAM IN NACL,ISO-OSMOT/PF 100 ML IV PRN (20:30)
[2021-04-30] MEDS ORDERED: MIDAZOLAM HCL IN 0.9 % NACL/PF 50 ML IV ONE (21:05)
--- NOTE | 2021-04-30 22:02 | NUR ---
PAGED DR. NOEL [phone] SPOKE WITH CHARLIE
--- NOTE | 2021-04-30 22:05 | NUR ---
Dr. James paged r/t HR 140's. Awaiting call back.
--- NOTE | 2021-04-30 22:10 | NUR ---
Pt's sister, Yumiko called. Status update given, questions answered.
[2021-04-30] MEDS ORDERED: MORPHINE SULFATE 10 MG/ML VIAL ONE (22:24)
--- NOTE | 2021-04-30 22:35 | NUR ---
PAGED DR. NOEL 2ND CALL [phone] SPOKE WITH OLIVIA
--- NOTE | 2021-04-30 22:55 | NUR ---
Call back from Dr. James. New order noted to decrease Propofol Drip by half and give Lopressor 5 mg IVP now. Propofol drip decreased from 25 mcg/kg/min to 12 mcg/kg/min.
[2021-04-30] MEDS ORDERED: METOPROLOL TARTRATE 5 MG/5 ML AMPUL IVP ONE (23:00)
[2021-04-30] MEDS ORDERED: METOPROLOL TARTRATE 5 MG/5 ML AMPUL IVP PRN (23:00)
[2021-04-30] MEDS ORDERED: METOPROLOL TARTRATE 5 MG/5 ML AMPUL ONE (23:08)
[2021-04-30] MEDS: MORPHINE SULFATE IN 0.9 % NACL 100 ML IV PRN (23:47)
[2021-05-01] VITALS: BP_SYST 148
[2021-05-01] MEDS: NOREPINEPHRINE BITARTRATE 16 MG in NS 234 ML IV PRN (00:11)
[2021-05-01 01:00] VITALS: BP_SYST 128
--- NOTE | 2021-05-01 02:12 | NUR ---
Unable to obtain blood pressure, HR 105, irregular rhythm noted. No palpable pulse. Code called, CPR initiated, see code blue sheet for further assessment details.
--- NOTE | 2021-05-01 02:42 | NUR ---
RT NOTES RESPONDED TO MAGALIE BARAJAS CALLED @ 0212. ARRIVED AT BEDSIDE, COMPRESSIONS BEING ADMINISTERED. VENTILATOR CONTINUED DURING CPR DUE TO COVID POSITIVE. COMPRESSORS ALTERNATED THROUGHOUT CODE. DR BURTON CALLED MAGALIE BARAJAS @ 0242.
--- NOTE | 2021-05-01 02:50 | NUR ---
Contacted pt's sister, Yumiko Zaragoza and notified of pt's expiration.
--- NOTE | 2021-05-01 02:50 | NUR ---
[employer] contacted contacted, spoke with Kyung. Pt to be released as appropriate. Case # [id number].
--- NOTE | 2021-05-01 02:55 | NUR ---
MDs NOTIFIED OF PATIENT DR. HENDERSON/DR. ZACARIAS RIGHT OF [address] MAINTENANCE SUPERVISOR [facility] [phone] NEWTON [phone] REN [phone] NOEL [phone] DSOUZA/DR. KAUR RIGHT OF WAY MAINTENANCE SUPERVISOR [phone] SPOKE WITH KARRIE
--- NOTE | 2021-05-01 02:58 | NUR ---
CORONERS PT RELEASED BY TESTING MANAGER AT THIS TIME. SPOKE WITH GEOVANI.
--- NOTE | 2021-05-01 03:00 | NUR ---
Dr. Platt notified of pt expiration.
[2021-05-01 03:03] VITALS: BP_SYST 156
--- NOTE | 2021-05-01 03:54 | NUR ---
FAMILY PTS SISTER DUSTIN CALLED IN AGAIN ASKING FOR DETAILS ABOUT PT EXPIRATION. COURSE OF CODE BLUE EXPLAINED TO FAMILY. NO FURTHER QUESTIONS FROM FAMILY AT THIS TIME. PER DUSTIN THEY SHOULD HAVE A MORTUARY SOMETIME TODAY AND WILL CALL BACK WITH THAT INFORMATION. WILL AWAIT FAMILY'S CALL BACK.
--- NOTE | 2021-05-01 04:30 | NUR ---
Pt's brother, Efraín, present to view body from out side of room.
--- NOTE | 2021-05-01 04:44 | NUR ---
Pt's brother leaves ICU with his brother's belongings in hand. Release for belongings signed..
--- NOTE | 2021-05-01 05:58 | NUR ---
Security takes pt remains to body hold via gurney.
[2021-05-01] MEDS ORDERED: EPINEPHrine JECT 0.1 MG/ML SYR ONE (16:18)
[2021-05-01] MEDS ORDERED: SODIUM BICARBONATE 8.4% JECT 50 MEQ/50 ML SYRINGE ONE (16:18)
== END 2021-05-01 02:42 | DRG 870 ==
LOC: SED 05:26 → SIC 08:40
PROVIDERS: ADMIT Internal Medicine Hospice and Palliative Medicine; ATTEND Internal Medicine Hospice and Palliative Medicine
PROC: 5A09357 Assistance with Respiratory Ventilation, Less than 24 Consecutive Hours, Continuous Positive Airway Pressure (ICD-10-PCS; 2021-04-17)
PROC: 5A1955Z Respiratory Ventilation, Greater than 96 Consecutive Hours (ICD-10-PCS; 2021-04-19)
PROC: XW033E5 Introduction of Remdesivir Anti-infective into Peripheral Vein, Percutaneous Approach, New Technology Group 5 (ICD-10-PCS; 2021-04-19)
PROC: XW033H5 Introduction of Tocilizumab into Peripheral Vein, Percutaneous Approach, New Technology Group 5 (ICD-10-PCS; 2021-04-19)
PROC: 5A09357 Assistance with Respiratory Ventilation, Less than 24 Consecutive Hours, Continuous Positive Airway Pressure (ICD-10-PCS; 2021-04-19)
PROC: 0BH17EZ Insertion of Endotracheal Airway into Trachea, Via Natural or Artificial Opening (ICD-10-PCS; 2021-04-19)
PROC: 0W9930Z Drainage of Right Pleural Cavity with Drainage Device, Percutaneous Approach (ICD-10-PCS; principal; 2021-04-30)
DX: A41.9 Sepsis, unspecified organism (principal); J12.82 Pneumonia due to coronavirus disease 2019; U07.1 COVID-19; J80 Acute respiratory distress syndrome; E43 Unspecified severe protein-calorie malnutrition; J81.1 Chronic pulmonary edema; N17.9 Acute kidney failure, unspecified; Z99.11 Dependence on respirator [ventilator] status; E87.0 Hyperosmolality and hypernatremia; E87.1 Hypo-osmolality and hyponatremia; J44.0 Chronic obstructive pulmonary disease with (acute) lower respiratory infection; R74.01 Elevation of levels of liver transaminase levels; E88.09 Other disorders of plasma-protein metabolism, not elsewhere classified; E83.52 Hypercalcemia; E83.51 Hypocalcemia; E83.41 Hypermagnesemia; R53.81 Other malaise; E83.42 Hypomagnesemia; E66.9 Obesity, unspecified; D64.9 Anemia, unspecified; I12.9 Hypertensive chronic kidney disease with stage 1 through stage 4 chronic kidney disease, or unspecified chronic kidney disease; N18.9 Chronic kidney disease, unspecified; Z79.899 Other long term (current) drug therapy; Z79.01 Long term (current) use of anticoagulants; Z68.36 Body mass index [BMI] 36.0-36.9, adult
CPT/HCPCS: 36415; 36600; 71045; 71275; 76376; 80048; 80053; 82550; 82553; 82728; 82803-TC; 82962; 83605; 83615; 83735; 83880; 84100; 84484; 85007; 85025; 85027; 85379; 85384; 85610-TC; 85651-TC; 85730-TC; 86140; 86886; 86900; 86901; 87040-TC; 87070-TC; 87081; 87205-TC; 92950; 93005; 93306; 94002; 94003; 94640; 94660; 94664; 94668; 96365; 96372; 96375; 99285; C9113; J0171; J0456; J0610; J0696; J1100; J1450; J1580; J1650; J2001; J2060; J2270; J2543; J2704; J3010; J3262; J3490; J7050; Q9967; U0003